=== PATIENT | female | born 1960 | race Caucasian/White ===

== ENCOUNTER 2018-05-04 09:26 | Outpatient (REF) | payer BC, SELFPAY ==
[2018-05-04 13:25] LABS: FREE T4 0.92 ng/dL (0.76-1.46); TSH 3.79 uIU/mL (0.358-3.74)
[2018-05-04 22:00] LABS: T3,Free 3.7 pg/ml (2.8-5.3)
[2018-05-05 11:21] LABS: Hepatitis C Ab w Rflx HCV PCR Negative (NEGAT)
== END 2018-05-04 09:46 ==
LOC: NCHCN 09:26
PROVIDERS: PCP Internal Medicine; Visit Provider Internal Medicine
DX: R63.5 Abnormal weight gain (principal); E03.9 Hypothyroidism, unspecified; Z11.59 Encounter for screening for other viral diseases; Z00.00 Encounter for general adult medical examination without abnormal findings
CPT/HCPCS: 82533; 86803; 84439; 84443; 84481

== ENCOUNTER 2018-07-13 00:49 | Outpatient (CLI) | payer BC, SELFPAY ==
--- NOTE | 2018-07-13 11:15 | DI.MAMMO_ITS ---
SYMPTOMS/DIAGNOSIS: SCREENING, Z12.31 MAMMOGRAM: Mammograms were interpreted according to the usual protocol including computer analysis with CAD system, tomosynthesis and C view imaging. Comparison with prior examinations. Breast density B. No suspicious masses or microcalcifications are seen. There has been no significant change compared to the prior examination. The retroareolar nodule in the left breast is stable. IMPRESSION: No evidence for malignancy. Yearly mammography is recommended. Category 2. MQSA ASSESSMENT OF FINDINGS: Negative with benign findings. Category 2. Patient will receive a letter notifying them of these results. BI-RADS category B. There are scattered areas of fibroglandular density.
== END 2018-07-13 01:09 ==
PROVIDERS: PCP Internal Medicine; Visit Provider Internal Medicine
DX: Z12.31 Encounter for screening mammogram for malignant neoplasm of breast (principal)
CPT/HCPCS: 77063; 77067

== ENCOUNTER 2018-09-11 07:15 | Outpatient (CLI) | payer BC, SELFPAY ==
[2018-09-11 08:41] LABS: FREE T4 0.95 ng/dL (0.76-1.46); TSH 8.11 uIU/mL (0.358-3.74)
[2018-09-12 15:37] LABS: Adrenocorticotropic Hormone, P 40 pg/mL
== END 2018-09-11 07:35 ==
PROVIDERS: PCP Internal Medicine
DX: D35.2 Benign neoplasm of pituitary gland (principal)
CPT/HCPCS: 36415; 82533; 82024; 84439; 84443

== ENCOUNTER 2018-10-20 13:06 | Outpatient (CLI) | payer BC, SELFPAY ==
[2018-10-20 15:14] LABS: T4 10.9 ug/dL (4.5-12.5); TSH 1.72 uIU/mL (0.358-3.74)
[2018-10-20 21:08] LABS: T3, Total 134 ng/dl (97-169)
== END 2018-10-20 13:26 ==
LOC: LBN 13:11 → LBO 13:34
PROVIDERS: PCP Internal Medicine; Visit Provider Internal Medicine Endocrinology, Diabetes & Metabolism
DX: E03.9 Hypothyroidism, unspecified (principal)
CPT/HCPCS: 36415; 84436; 84443; 84480

== ENCOUNTER 2019-02-05 10:33 | Outpatient (CLI) | payer BC, SELFPAY ==
[2019-02-05 17:14] LABS: TSH 1.11 uIU/mL (0.36-3.74)
[2019-02-07 18:33] LABS: T3, Total 119 ng/dl (97-169)
== END 2019-02-05 10:53 ==
PROVIDERS: PCP Internal Medicine; Visit Provider Internal Medicine Endocrinology, Diabetes & Metabolism
DX: E03.9 Hypothyroidism, unspecified (principal)
CPT/HCPCS: 36415; 84436; 84443; 84480

== ENCOUNTER 2019-03-15 08:45 | Outpatient (REF) | payer BC, SELFPAY ==
[2019-03-15 12:52] LABS: TSH 0.48 uIU/mL (0.36-3.74)
[2019-03-15 21:37] LABS: T3,Free 4.1 pg/ml (2.8-5.3)
== END 2019-03-15 09:05 ==
LOC: NCHCN 08:45
PROVIDERS: PCP Internal Medicine; Visit Provider Internal Medicine
DX: R63.5 Abnormal weight gain (principal); E03.9 Hypothyroidism, unspecified
CPT/HCPCS: 82533; 84439; 84443; 84481

== ENCOUNTER 2019-03-19 16:20 | Outpatient (REF) | payer BC, SELFPAY ==
--- NOTE | 2019-03-19 14:00 | PAPFT_PTH ---
PATIENT: Edgar Patel LOC: [facility] U#:[id number] AGE/SX: 58/F ROOM: RE03/19/[address]: Lindsey Delgado : 1960 BED: DIS: 03/19/2019 SPEC #: [id number] RECD: 03/22/19 13:02 STATUS: JUANCHO REFrancisco #: [id number] EFRAÍN: 03/19/19 14:[address]: Lindsey Delgado DEPT: [facility] Cytology RECD BY: Elena Joel ENTERED: 03/22/19 13:02 SP TYPE: PAPFT OTHR DR: Clive Humpherys Tissues: 1 - CX/ENDOCX FOR PAP SMEARS Procedures: PAP THIN PREP/[facility] Screening HPV DNA PROBE Comments: [id number] (CHLAMYDIA/GC)
[2019-03-23 12:44] LABS: Chlamydia Result Negative; GC Result Negative; Specimen Description SEE COMMENTS
== END 2019-03-19 16:40 ==
LOC: NCHCN 16:20
PROVIDERS: PCP Internal Medicine; Visit Provider Nurse Practitioner Family
DX: R39.11 Hesitancy of micturition (principal); Z11.3 Encounter for screening for infections with a predominantly sexual mode of transmission; Z12.4 Encounter for screening for malignant neoplasm of cervix; Z11.51 Encounter for screening for human papillomavirus (HPV)
CPT/HCPCS: 87491; 87591; 88142; 87086; 87480; 87510; 87624; 87660

== ENCOUNTER 2019-03-22 00:42 | Outpatient (CLI) | payer BC, SELFPAY ==
--- NOTE | 2019-03-22 12:50 | DI.US_ITS ---
SYMPTOMS/DIAGNOSIS: MASS LEFT ANTECUBITAL REGION, R22.9-LOCALIZED SWELLING, MASS AND LUMP, UNSPECIFIED ULTRASOUND OF THE SOFT TISSUES IN THE LEFT ANTECUBITAL SPACE: There is no evidence of a localized mass or fluid collection. The patient reports multiple IVs were positioned in this site for previous MRIs. SUMMARY: No discrete mass or fluid collection is apparent.
== END 2019-03-22 01:02 ==
PROVIDERS: PCP Internal Medicine; Visit Provider Surgery
DX: R22.32 Localized swelling, mass and lump, left upper limb (principal); M79.89 Other specified soft tissue disorders
CPT/HCPCS: 76881

== ENCOUNTER 2019-03-29 00:29 | Outpatient (CLI) | payer BC, SELFPAY ==
--- NOTE | 2019-03-29 13:12 | DI.CT_ITS ---
EXAM: CT UPPER EXTREMITY LT W CLINICAL HISTORY: Mass just distal to left antecubital fossa, R22.9. TECHNIQUE: The examination was carried out with intravenous administration of 100 cc of Omnipaque 35 0. COMPARISON: No exams were available for comparison FINDINGS: There is no evidence of a soft tissue mass. No bony abnormality is identified. IMPRESSION: No abnormality is evident. If there is strong further clinical question, then further assessment with an MRI is suggested.
[2019-03-29 14:43] LABS: CREATININE 0.84 mg/dL (0.55-1.02)
[2019-03-29] MEDS: Omnipaque 350 MG/ML 100 ML BTL IJ (15:21)
== END 2019-03-29 00:49 ==
PROVIDERS: PCP Internal Medicine; Visit Provider Surgery
DX: R22.32 Localized swelling, mass and lump, left upper limb (principal)
CPT/HCPCS: 36415; 73201; 82565; J3490

== ENCOUNTER 2019-04-28 10:29 | Emergency (ER) | payer BC, SELFPAY ==
[2019-04-28 10:33] VITALS: BP 102/47; PULSE 78; RESP 18; TEMP 36.5; O2SAT 95
--- NOTE | 2019-04-28 10:40 | ED.GENADUL_ITS ---
Discharge Plan Discharge Details Chief Complaint: Abd Prob Primary Care Provider: Clive Humphreys ED Provider: Rui Sommer Home Meds and New Rx's Prescriptions: No Action Bevespi Aerosphere 9-4.8 mcg HFA aerosol inhaler 2 puff IH BID RF: 0 levothyroxine [Synthroid] 100 mcg tablet 100 mcg PO DAILY RF: 0 pyridoxine (vitamin B6) [Vitamin B-6] 100 MG tablet 100 mg PO DAILY RF: 0 albuterol sulfate [Ventolin HFA] 60 PUFF HFA aerosol inhaler 2 puff Inhalation .QID PRN RF: 0 multivitamin 1 EACH capsule 1 ea PO DAILY RF: 0 Medical Decision Making 58-year-old female presents from home complaining of approximately 6 months of intermittent episodes of bandlike epigastric abdomen and chest discomfort. Sometimes associated with unwillingness to eat. She has not had vomiting, no fever, no change to bowel or bladder habits. She states sometimes it comes on when walking in her field for up to 3 miles. It does seem to improve with rest. Denies syncope. She states she was unable to be seen by her regular doctor's office and therefore sought evaluation today due to recurrent bandlike pain while walking this morning. She arrives with a temp of 36.5, pulse 78, blood pressure 102/47. Her examination is unremarkable. Differential diagnosis within include acute coronary syndrome with stable angina, must exclude PE, would consider dehydration, electrolyte abnormality,, abdominal claudication, thyroid abnormality Lab Data Lab results reviewed: Yes I reviewed the patient's lab results. Labs: Laboratory Results - last 24 hr 04/28/19 04/28/19 04/28/19 10:55 10:55 11:06 WBC 4.60 RBC 4.61 Hgb 14.2 Hct 42.2 MCV 91.5 MCH 30.8 MCHC 33.6 RDW 12.9 Plt Count 245 MPV 10.3 Immature Gran % 0.4 Neutrophils % 55.5 Lymphocytes % 30.4 Monocytes % 10.9 Eosinophils % 2.4 Basophils % 0.4 Absolute Neutrophils 2.55 Absolute Lymphocytes 1.40 Absolute Monocytes 0.50 Absolute Eosinophils 0.11 Absolute Basophils 0.02 Sodium 143 Potassium 3.9 Chloride 106 Carbon Dioxide 26.5 Anion Gap 10.5 BUN 7 Creatinine 0.86 Estimated GFR/1.73 m2 >= 60.00 Glucose 101 H Calcium 9.2 Magnesium 1.8 Total Bilirubin 0.5 AST 28 ALT 33 Alkaline Phosphatase 118 H Troponin I < 0.05 NT-Pro-B Natriuret Pep 139 Total Protein 6.8 Albumin 3.8 Lipase 112 Urine Color Yellow Urine Clarity Clear Urine pH 8.5 H Ur Specific [place] 1.015 Urine Protein Trace H Urine Ketones Negative Urine Blood Negative Urine Nitrite Negative Urine Bilirubin Negative Urine Urobilinogen 0.2 Ur Leukocyte Esterase Negative Urine Glucose Negative ECG Data Attestation: I personally reviewed and interpreted this ECG (s) as follows: Interpretation: Normal sinus rhythm, rate of 77, QRS is narrow, VA interval 112, no delta wave appreciated. No ST segment elevation present. HPI General Mode of arrival: ambulatory . Date/Time Provider Initiated Documentation: 04/28/19 10:36 . Limitations to Documentation: no limitations . Information obtained by: patient . History of Present Illness 58 year old F presents to the emergency department with the chief complaint of Multiple complaints over 6 months time, described as moderate, Quality is described as dull, and is localized to the chest and abdomen. Patient reports radiation to back and abdomen. Patient started experiencing this month(s) and it has been intermittent. Rest improves symptom(s), Other factors that worsen symptoms (Seems to worsen with exercise) . Patient notes loss of appetite; denies syncope. Patient did receive the following treatments prior to arrival, none Related Data Home Medications Medication Instructions Recorded Confirmed albuterol sulfate [Ventolin HFA] 2 puff INHALATION .QID PRN 01/18/14 04/28/19 multivitamin 1 ea PO DAILY 01/18/14 04/28/19 pyridoxine (vitamin B6) [Vitamin 100 mg PO DAILY 01/18/14 04/28/19 B-6] levothyroxine 100 mcg tablet 100 mcg PO DAILY 03/05/19 04/28/19 glycopyrrolate 9 mcg-formoterol 2 puff IH BID 03/15/19 04/28/19 4.8 mcg HFA aerosol inhaler Allergies Allergy/AdvReac Type Severity Reaction Status Date / Time Penicillins Allergy Mild Verified 04/28/19 10:38 steroids Allergy Intermediate Uncoded 04/28/19 10:38 General Stated Complaint: SOB CAROLIN: 3 Review of Systems Review of Systems Narrative: Intermittent headaches since having meningioma removed. No new fall or trauma. Denies bowel or bladder changes. 8 systems reviewed and otherwise negative [facility] Medical History Adrenal insufficiency (Acute) steroid inhaler Anxiety and depression (Acute) Asthma (Chronic) intermittent, mild Benign meningioma of brain (Acute) Cardiomyopathy (Acute) COPD (chronic obstructive pulmonary disease) (Chronic) Environmental allergies (Acute) Exertional shortness of breath (Acute) Fatigue (Acute) Headache (Acute) Hypothyroidism (Chronic) Pain in right thigh (Acute) Physical deconditioning (Acute) Soft tissue mass (Acute) 03/01/19 left forearm Vision changes (Acute) Social History Smoking/Tobacco Use Status: Former Tobacco Use Drug use: Never Do you feel safe in your relationship?: Yes Exam Narrative Exam Narrative: GEN: awake, alert, oriented 3. Pleasant, well groomed, interactive. HEAD: Normocephalic, atraumatic ENT: Mucous membranes moist, oropharynx unremarkable, External ear exam unremarkable EYES: PERRL, EOMI NECK: Full ROM, no NATO, no menigismus CHEST/RESP: Nontender, clear to auscultation bilateral, no wheeze/rhonchi/rales CARDIOVASCULAR: RRR, no murmur, rub daniela. 2+ Rad pulse bilateral ABDOMEN: Soft, nontender, no mass. +Bowel sounds EXT: Full ROM, no edema, no rash Neuro: Grossly normal neurologic exam, conversant, interactive. Psych: Speech fluent, thoughts congruent, affect normal Course Vital Signs Vital signs: Vital Signs Temperature 36.5 C 04/28/19 10:33 Pulse 78 04/28/19 10:33 Respiratory Rate 18 04/28/19 10:33 Blood Pressure 102/47 L 04/28/19 10:33 Pulse Oximetry 94 L 04/28/19 10:33 Temperature 36.5 C 04/28/19 10:33 Temperature Source Skin 04/28/19 10:33 Pulse 78 04/28/19 10:33 Respiratory Rate 18 04/28/19 10:33 Respiratory Effort 04/28/19 10:33 Blood Pressure 102/47 L 04/28/19 10:33 Blood Pressure Position Supine 04/28/19 10:33 Pulse Oximetry 94 L 04/28/19 10:33 Pain Level 8 04/28/19 10:33
[2019-04-28 11:24] LABS: Abs Immature Grans 0.02 k/cumm (0.0-0.09); Absolute Basophil Count 0.02 k/cumm (0.0-0.2); Absolute Eosinophil Count 0.11 k/cumm (0.0-0.7); Absolute Neutrophil Count 2.55 k/cumm (1.2-6.7); Basophils % 0.4; Eosinophils % 2.4; HCT 42.2 % (36.0-46.0); HGB 14.2 g/dL (12.0-15.5); Immature Grans % 0.4; Lymphocytes % 30.4; Mean Corp. HGB Concentration 33.6 g/dL (32.0-36.0); Mean Corpuscular Hemoglobin 30.8 pg (27.0-33.0); Mean Corpuscular Volume 91.5 fL (80-95); Mean Platelet Volume 10.3 fL (8.0-11.0); Monocytes % 10.9; Neutrophils % 55.5; Platelet Count 245 x1000/uL (130-400); RBC 4.61 m/cumm (4.00-5.20); RBC Distribution Width 12.9 % (11.7-14.6)
[2019-04-28 11:35] LABS: ALT 33 U/L (14-59); AST 28 U/L (15-37); Albumin 3.8 g/dL (3.4-5.0); Alkaline Phosphatase 118 U/L (46-116); Anion Gap 10.5 mmol/L (3-11); BUN 7 mg/dL (7-18); Bilirubin, Total 0.5 mg/dL (0.2-1.0); CO2 26.5 mmol/L (21.0-32.0); CREATININE 0.86 mg/dL (0.55-1.02); Calcium 9.2 mg/dL (8.5-10.1); Chloride 106 mmol/L (98-107); Glucose 101 mg/dL (70-100); Lipase 112 U/L (73-393); Magnesium 1.8 mg/dL (1.8-2.4); NT-proBNP 139 pg/mL; Potassium 3.9 mmol/L (3.5-5.1); Sodium 143 mmol/L (136-145); Total Protein 6.8 g/dL (6.4-8.2)
[2019-04-28 11:40] LABS: Troponin I < 0.05 ng/mL (0.00-0.06)
--- NOTE | 2019-04-28 11:46 | DI.CT_ITS ---
EXAM: CT CHEST/ABD/PEL W CLINICAL HISTORY: bandlike epigastric pain. TECHNIQUE: The CT examination chest, abdomen and pelvis was carried out with intravenous injection o f 100 cc of Omnipaque 350. COMPARISON: No exams were available for comparison FINDINGS: Chest CT: There are emphysematous changes in the lungs. No infiltrate, mass or pleural effusion is seen. The heart is not enlarged. There is no evidence of an aortic aneurysm or aortic dissection. No pulmonar y emboli are identified. No acute bony abnormality is seen. There is no evidence of lymphadenopathy . Small regions of calcification in the right paratracheal space would be consistent with calcified lymph nodes. CT examination of the abdomen and pelvis: The liver and gallbladder are unremarkable. The kidneys are normal. There is no evidence of hydronep hrosis. The adrenals are normal. There is no evidence of bowel obstruction. There is nothing to bond ggest an acute appendix. No localized bowel wall abnormality is apparent. The reproductive organs a s visualized appear intact. The bladder is unremarkable. There is no evidence of free air or free f luid in the intraperitoneal space. Small fat containing inguinal hernias are identified. There is a lso a tiny fat containing umbilical hernia. There is no evidence of an aortic aneurysm. Degenerativ e bony changes associated with a narrowed vacuum disc at L5-S1 are identified. No acute bony abnorma lity is seen. IMPRESSION: There is no evidence of an acute abnormality in the chest, abdomen or pelvis.
[2019-04-28 11:55] LABS: D-Dimer 350 ng/mlFEU (<500)
[2019-04-28] MEDS: Normal Saline 500 ML IV (12:00)
[2019-04-28] MEDS: Omnipaque 350 MG/ML 100 ML BTL IV (12:35)
[2019-04-28 12:47] LABS: Bilirubin Negative (Negative); Blood Negative (Negative); Clarity Clear (Clear); Glucose Negative (Negative); Ketones Negative (Negative); Leukocyte Esterase Negative (Negative); Nitrite Negative (Negative); Specific Gravity 1.015 (1.005-1.025); Urobilinogen 0.2 EU/dL (Up TO 0.2); pH 7.5 (5-8)
[2019-04-28 12:53] LABS: TSH 1.21 uIU/mL (0.36-3.74)
[2019-04-28 14:28] LABS: Troponin I < 0.05 ng/mL (0.00-0.06)
[2019-04-28 15:14] VITALS: BP 100/63; PULSE 90; RESP 18; O2SAT 94
== END 2019-04-28 15:15 | disposition home or self-care (01) ==
PROVIDERS: Emergency Provider Emergency Medicine; PCP Internal Medicine
DX: R10.13 Epigastric pain (principal); R07.9 Chest pain, unspecified; J44.9 Chronic obstructive pulmonary disease, unspecified; Z87.891 Personal history of nicotine dependence
CPT/HCPCS: 36415; 74177; 80053; 83690; 93005; 99285; 71260; 81003; 81015; 83735; 83880; 84443; 84484; 85025; 85379; 93010; 99284; J3490

== ENCOUNTER 2019-08-27 10:39 | Outpatient (REF) | payer BC, SELFPAY ==
[2019-08-27 12:21] LABS: HCT 44.8 % (36.0-46.0); Mean Corp. HGB Concentration 33.5 g/dL (32.0-36.0); Mean Corpuscular Hemoglobin 30.3 pg (27.0-33.0); Mean Corpuscular Volume 90.5 fL (80-95); Mean Platelet Volume 10.6 fL (8.0-11.0); Platelet Count 272 x1000/uL (130-400); RBC 4.95 m/cumm (4.00-5.20); RBC Distribution Width 12.9 % (11.7-14.6); White Blood Cell Count 5.19 k/cumm (4.4-10.8)
[2019-08-27 12:37] LABS: Anion Gap 10.2 mmol/L (3-11); BUN 8 mg/dL (7-18); CO2 26.8 mmol/L (21.0-32.0); CREATININE 0.82 mg/dL (0.55-1.02); Calcium 9.1 mg/dL (8.5-10.1); Chloride 106 mmol/L (98-107); Creatine Kinase 144 U/L (26-192); FREE T4 1.44 ng/dL (0.76-1.46); Glucose 99 mg/dL (74-106); NT-proBNP 151 pg/mL (<300); Potassium 4.5 mmol/L (3.5-5.1); Sodium 143 mmol/L (136-145); TSH 0.22 uIU/mL (0.36-3.74)
[2019-08-27 17:13] LABS: T3,Free 4.3 pg/mL (2.8-5.3)
[2019-08-30 08:35] LABS: Vitamin D 25 Total 24.9 ng/ml (30-100)
== END 2019-08-27 10:59 ==
LOC: NCHCN 10:39
PROVIDERS: PCP Internal Medicine; Visit Provider Internal Medicine
DX: R06.09 Other forms of dyspnea (principal); J44.9 Chronic obstructive pulmonary disease, unspecified; R30.0 Dysuria; E03.9 Hypothyroidism, unspecified; Z86.79 Personal history of other diseases of the circulatory system
CPT/HCPCS: 80048; 82306; 82550; 85027; 83880; 84439; 84443; 84481

== ENCOUNTER 2019-08-30 02:08 | Outpatient (CLI) | payer BC, SELFPAY ==
--- NOTE | 2019-08-30 | PFT_ITS ---
PULMONARY FUNCTION TEST REPORT Patient - Edgar Patel DATE OF SERVICE August 30, 2019 REQUESTING PROVIDER Clive Humphreys M.D. INTERPRETATION OF STUDY Spirometry shows severe obstructive airways disease with no significant bronchodilator response. Respiratory neuromuscular function testing shows slightly low MVV, but normal MIP and MEP. LUNG VOLUMES - Lung volumes show no evidence of restriction. There is mild to moderate hyperinflation and air trapping. DIFFUSION CAPACITY- Moderately reduced even when corrected to alveolar volume. AIRWAY RESISTANCE Elevated. IMPRESSION Severe obstructive airways disease with no significant bronchodilator response. There is slightly low MVV, but otherwise respiratory neuromuscular function testing is normal. There is mild to moderate hyperinflation and air trapping and moderate diffusion defect. When this study was compared to previous one from 11/21/14 and 12/27/16, the patient has an initial improvement in FVC and has been totally stable since 2017. FEV1 has remained stable from 2015. Tosin Cobb M.D. Shay T- 09/03/19
[2019-08-30] MEDS: Inhaler, Assist Device 1 EACH MC (17:17)
[2019-08-30] MEDS: Albuterol HFA 18 GM 200 PUFF INH IH (17:17)
== END 2019-08-30 02:28 ==
PROVIDERS: PCP Internal Medicine; Visit Provider Internal Medicine
DX: J44.9 Chronic obstructive pulmonary disease, unspecified (principal); R06.09 Other forms of dyspnea; E03.9 Hypothyroidism, unspecified
CPT/HCPCS: 94060; 94726; 94729

== ENCOUNTER 2019-09-08 13:11 | Emergency (ER) | payer BC, SELFPAY ==
[2019-09-08 13:16] VITALS: BP 113/69; PULSE 90; RESP 16; TEMP 36.5; O2SAT 93
[2019-09-08 14:07] LABS: Abs Immature Grans 0.01 k/cumm (0.0-0.09); Absolute Basophil Count 0.01 k/cumm (0.0-0.2); Absolute Eosinophil Count 0.26 k/cumm (0.0-0.7); Absolute Lymphocyte Count 1.83 k/cumm (1.2-3.4); Absolute Monocyte Count 0.58 k/cumm (0.11-0.7); Absolute Neutrophil Count 2.99 k/cumm (1.2-6.7); Basophils % 0.2; Eosinophils % 4.6; HCT 44.2 % (36.0-46.0); HGB 15.2 g/dL (12.0-15.5); Immature Grans % 0.2 %; Lymphocytes % 32.2; Mean Corp. HGB Concentration 34.4 g/dL (32.0-36.0); Mean Corpuscular Hemoglobin 30.5 pg (27.0-33.0); Mean Corpuscular Volume 88.6 fL (80-95); Mean Platelet Volume 10.4 fL (8.0-11.0); Monocytes % 10.2; Neutrophils % 52.6; Platelet Count 269 x1000/uL (130-400); RBC 4.99 m/cumm (4.00-5.20); RBC Distribution Width 12.8 % (11.7-14.6); White Blood Cell Count 5.68 k/cumm (4.4-10.8)
[2019-09-08 14:09] VITALS: O2SAT 90
[2019-09-08 14:10] VITALS: O2SAT 93
[2019-09-08 14:22] LABS: ALT 36 U/L (14-59); AST 27 U/L (15-37); Alkaline Phosphatase 127 U/L (46-116); Anion Gap 9.9 mmol/L (3-11); BUN 8 mg/dL (7-18); Bilirubin, Total 0.3 mg/dL (0.2-1.0); CO2 26.1 mmol/L (21.0-32.0); CREATININE 0.76 mg/dL (0.55-1.02); Chloride 105 mmol/L (98-107); Glucose 101 mg/dL (74-106); Sodium 141 mmol/L (136-145)
[2019-09-08 14:35] LABS: NT-proBNP 131 pg/mL (<300); Troponin I < 0.05 ng/Ml (<0.06)
--- NOTE | 2019-09-08 14:39 | NUR.NOTE ---
nebulizers given as orderd by RT . unable to document in the MAR due to a code blackNursing Note:
--- NOTE | 2019-09-08 15:15 | DI.RAD_ITS ---
EXAM: XR CHEST 2V PA LATERAL CLINICAL HISTORY: SOB, r/o pneumonia TECHNIQUE: 2D digital imaging was performed. COMPARISON: CHEST 2 VIEWS PA,LAT from 02/25/2017 FINDINGS: MEDIASTINUM: Normal. HEART: Normal. PULMONARY VASCULATURE: Normal. LUNGS: Clear. The lungs are hyperinflated suggesting underlying COPD. PLEURAL SPACE: No pleural effusion or pneumothorax. BONE:Within normal limits. OTHER FINDINGS:Normal. IMPRESSION: No acute pulmonary findings. DATA REPOSITORY: RADIATION DOSE DELIVERED:
--- NOTE | 2019-09-08 16:21 | W.ED.GENAD ---
Discharge Plan Disposition Patient Disposition: HOME Condition: Improving Discharge Details Chief Complaint: SOB Clinical Impression: COPD exacerbation Primary Care Provider: Clive Humphreys ED Provider: Parisa Limon Home Meds and New Rx's Prescriptions: New Advair HFA 230-21 mcg/actuation HFA aerosol inhaler 1 puff IH BID Qty: 8 RF: 0 No Action levothyroxine [Synthroid] 100 mcg tablet 100 mcg PO DAILY RF: 0 pyridoxine (vitamin B6) [Vitamin B-6] 100 MG tablet 100 mg PO DAILY RF: 0 albuterol sulfate [Ventolin HFA] 60 PUFF HFA aerosol inhaler 2 puff Inhalation .QID PRN RF: 0 multivitamin 1 EACH capsule 1 ea PO DAILY RF: 0 Anoro Ellipta 62.5-25 mcg/actuation Blister With Device 62.5 INHALATION RF: 0 Discharge Instructions Instructions: COPD (Chronic Obstructive Pulmonary Disease) (ED) Additional Instructions: Please follow-up promptly with primary care doctor, please call tomorrow to schedule appointment in the next 48 hours for reassessment. Please restart Advair as discussed. Pursue pulmonary rehab as discussed. You will be contacted regarding prompt appointment with clinical assistant professor Encourage Rest, slow return to activities as tolerated. Referral for endocrinology has been sent, you should hear in the next 2 days. Return immediately for increasing difficulty breathing, increase in shortness of breath, chest pain or alarming symptoms if needed sooner Referrals: Clive Humphreys MD [Primary Care Provider] - Discharge Data Discharge Date/Time-TO BE ENTERED AT DEPARTURE: 09/08/19 19:03 Medical Decision Making <SANA Lagos - Last Filed: 09/09/19 17:51> Is a 59-year-old very pleasant patient with severe COPD based on previous pulmonary function testing presenting to the emergency room for shortness of breath which has been insidious in onset. She does report mild flushing and chills over the last week and is concerned with the possibility of a pulmonary infection. Patient reports several years of shortness of breath. Patient reports somewhat worse in the last few days. Patient reports exertional dyspnea. Patient reports she is quite anxious regarding her dyspnea which she has been experiencing. Patient denies any active chest or back pain. Patient reports compliance with her inhalers which were transiently helpful. Patient reports she has been quite sedentary over this year and has been unable to participate in the majority of the outdoor activities she enjoys due to her shortness of breath. Patient reports she was previously on steroid inhalers but those inhalers were discontinued due to adrenal insufficiency which was attributed to chronic inhaler use. Patient reports when she was on inhalers her breathing was significantly better than she is noted it to be over the last few years. Patient does have a complicated medical history specifically she had adrenal abnormalities and ultimately had imaging of her brain which noted and a hemangioma which was benign which was surgically removed 2 years ago. Patient does have a history of hypothyroidism for which she is treated with Synthroid. Patient has worked with her PCP for her shortness of breath and is due to see a clinical assistant professor scheduled in December. Patient does report recent pulmonary function testing, which did reveal severe COPD with air trapping and alveolar breakdown. On physical exam patient is anxious, vital signs reviewed mild hypoxia noted at 92%. Patient has diffuse wheezing on her breath sounds. No desaturations with ambulating Initial EKG reveals sinus rhythm with a rate of 72, no ST segment changes. This was reviewed with Dr. Roy. Labs as well as chest x-ray ordered. Respiratory therapist reviewed patient's PFTs and recommends aerogen DuoNeb's x3. Patient did report mild improvement after DuoNeb's. Labs reveal no associated leukocytosis, initial troponin is negative and CMP within normal limits with the exception of mild elevation of alk phos which has been elevated slightly compared to previous labs. Patient is aware of this. Given patient's insidious onset of symptoms, as well as diffuse wheezing on exam with lack of associated chest pain or typical cardiac symptoms I feel ACS is unlikely. Patient does report she underwent a significant cardiac evaluation a few years ago which was unremarkable for abnormalities. Patient also does not feel this is likely cardiac in etiology. Chest x-ray unremarkable for identifiable pneumonia consistent with COPD. I spoke with covering PCP Kandi Martinez, covering for Dr. Humphreys, she reviewed patient's previous charts which did reveal adrenal insufficiency reportedly secondary to inhaler use and the recommendation for discontinuation was made by Dr. Gaines. We discussed the use of reinitiating inhaled steroids given patient's limitations to her activities of daily living, persistent COPD symptoms and presentation today. Patient was previously on Advair 230 mcg 2 puffs twice daily, we discussed restarting at [address] Martinez agree with reinitiation of Advair given risks and benefits and following up promptly with Dr. Humphreys. Respiratory therapist will brass molder helper and prompt pulmonary referral for reevaluation as an outpatient to expedite patient's outpatient evaluation. Also recommended pulmonary rehab which I do feel is reasonable. On reevaluation of the patient oxygenation is maintained at 92%, however patient reports despite the 3 nebulizer treatments she again had transient improvement and does feel short of breath when exerting. Will add d-dimer to rule out pulmonary embolism a possible etiology of patient's symptoms. Patient signed out pending TSH, d-dimer and urinalysis. <SANA Forrester - Last Filed: 09/09/19 23:26> Care was transitioned myself with a TSH, d-dimer and urinalysis pending. Elsa Bishop initially saw the patient, please see her note regarding presentation, physical exam and initial work-up. In brief, patient is a 59-year-old female with history of COPD that is progressive and worsening over the past 2 years with a abrupt increase in symptoms over the past 4 days. No fevers or chills. Work-up thus far has been without significant abnormality. She has been responding to duo nebulizers and does feel slightly improved. However, patient continues to be concerned regarding her activity level is typically activity causes sudden increase and has greatly been limiting her ability to participate in day-to-day activities. She does not have any chest pain. Please see Elsa's note regarding initial labs and EKG. Patient has been seen by respiratory therapy and a referral has been sent to pulmonology. Making this more difficult, the patient also has a history of adrenal insufficiency which is believed to be associated with inhaled previous use of inhaled glucocorticoids. However, patient also reports that this time she was diagnosed with adrenal insufficiency also is having difficulty maintaining her thyroid and with a pituitary adenoma. She has not seen endocrinology in some time, is requesting a local game warden, referral will be sent. Elsa had discussed the patient's presentation and concerns with primary care and Advair was already prescribed. TSH within normal limits. D-dimer within normal limits. Urinalysis with trace leukocyte esterase. However, the patient is asymptomatic so no for treatment at the time is appropriate. Discussed these findings with the patient. Elsa is also advised potentially beginning the patient on oral corticosteroids. However, the patient report that she is been on cortisol as well as prednisone historically and has responded quite poorly to these. She is very hesitant to take oral steroids at this time. She is done so poorly with these in the past and is improving with inhaled steroids, I do feel appropriate without the oral steroids particular as the patient seems quite reliable and return with worsening symptoms. Given the initial presentation and that the patient is beginning inhaled steroids for the first time in several years, I would like her to have prompt follow-up with primary care. She does feel ready for discharge at this time. She was given strict return precautions. She does live locally and is able to return with new or worsening symptoms. Referral for endocrinology and pulmonology has been sent. I would like for her to be evaluated in the next 48 hours. All of her questions and concerns were addressed and she is in agreement with this plan. HPI <SANA Lagos - Last Filed: 09/09/19 17:51> General Date/Time Provider Initiated Documentation: 09/08/19 13:18. HPI Narrative: This is a 59-year-old patient who is quite pleasant presenting to the emergency room for escalating complaints of shortness of breath. Patient reports several years of shortness of breath worse in the last year and specifically worse in the last few days. Patient reports she is using her inhalers at home which are transiently relieving. Patient reports when ambulating dyspnea on exertion. Patient reports 3 pillow orthopnea at night, this has been her baseline for approximately 1 year. Patient reports cough present chronically. Patient does report clear sputum intermittently produce. Patient denies any active chest or back pain. Patient denies headache or dizziness at this time. Patient does report mild chills and intermittent flushing but no measured fevers, notable in the last week. Patient denies sinus pain or pressure. Denies ear pain. Denies nausea, vomiting or diarrhea. Is eating and drinking without difficulty. Patient does report mild sensation of swelling in the proximal thigh but no lower leg swelling associated. Denies any injury or trauma. Patient denies abdominal pain. Symptoms worse when exerting. Patient finds herself very sedentary due to her symptoms. Related Data Home Medications Medication Instructions Recorded Confirmed albuterol sulfate [Ventolin HFA] 2 puff INHALATION .QID PRN 01/18/14 09/08/19 multivitamin 1 ea PO DAILY 01/18/14 09/08/19 pyridoxine (vitamin B6) [Vitamin 100 mg PO DAILY 01/18/14 09/08/19 B-6] levothyroxine 100 mcg tablet 100 mcg PO DAILY 03/05/19 09/08/19 fluticasone propion-salmeterol 1 puff IH BID #8 gm 09/08/19 [Advair HFA] umeclidinium-vilanterol [Anoro 62.5 INHALATION 09/08/19 Ellipta] Previous Rx's Medication Instructions Recorded fluticasone propion-salmeterol 1 puff IH BID #8 gm 09/08/19 [Advair HFA] Allergies Allergy/AdvReac Type Severity Reaction Status Date / Time Penicillins Allergy Mild Verified 09/08/19 13:34 steroids Allergy Intermediate Uncoded 09/08/19 13:34 General Stated Complaint: SOB CAROLIN: 3 Review of Systems <SANA Lagos - Last Filed: 09/09/19 17:51> All systems reviewed & are unremarkable except as noted in HPI and below Constitutional Constitutional: Reports chills, Reports fatigue, Reports fever(s) (Subjective), Denies headache(s) and Denies malaise ENT Ears, Nose, Mouth, and Throat: Denies dizziness, Denies headache(s), Denies nasal congestion, Denies sinus pain, Denies sinus pressure and Denies sore throat Cardiovascular Cardiovascular: Denies chest pain, Denies chest pain at rest, Denies chest pain with activity, Denies radiating jaw, neck or arm pain, Denies palpitations, Reports dyspnea and Reports dyspnea on exertion Respiratory Respiratory: Reports cough, Denies hemoptysis, Denies pain on inspiration, Reports dyspnea, Reports dyspnea on exertion and Reports wheezing Gastrointestinal Gastrointestinal: Denies abdominal pain, Denies diarrhea, Denies nausea and Denies vomiting Genitourinary Genitourinary: Denies hematuria and Reports dysuria (Intermittent, she attributes to her medication: anoro) Musculoskeletal Musculoskeletal: Denies myalgias and Denies muscle weakness Neurologic Neurologic: Denies dizziness and Denies headache(s) Endocrine Endocrine: Reports fatigue and Denies palpitations Allergic/Immunologic Allergic/Immunologic: Reports wheezing PFSH <SANA Lagos - Last Filed: 09/09/19 17:51> Medical History Adrenal insufficiency (Acute) steroid inhaler Anxiety and depression (Acute) Asthma (Chronic) intermittent, mild Benign meningioma of brain (Acute) Cardiomyopathy (Acute) COPD (chronic obstructive pulmonary disease) (Chronic) Environmental allergies (Acute) Exertional shortness of breath (Acute) Fatigue (Acute) Headache (Acute) Hypothyroidism (Chronic) Pain in right thigh (Acute) Physical deconditioning (Acute) Soft tissue mass (Acute) 03/01/19 left forearm Vision changes (Acute) Social History Smoking/Tobacco Use Status: Former Tobacco Use Quit Date: 10/06/15 Alcohol Intake: never Drug use: Never Substance use type: does not use Do you feel safe at home: Yes Do you feel safe in your relationship?: Yes Exam <SANA Lagos - Last Filed: 09/09/19 17:51> Narrative Exam Narrative: CONST: Anxious. Well hydrated. Alert and alert. HENMT: Head nomocephalic, normal to inspection. Atraumatic. Hearing grossly normal. External ear canal no erythema or swelling. TM normal bilaterally. Nose normal to inspection. No rhinnorhea. Normal facial exam. Oral mucosa normal. Tounge normal. Dentition normal. Normal posterior oropharynx. Uvula midline. EYES: General normal appearance. Alignment normal. Eyelids normal. Conjunctiva normal. Sclera normal. PERRL. NECK: Normal visual inspection. FROM. No lymphadenopathy. Trachea midline. No Midline tenderness. CHEST: Normal insepection of the chest. RESP: Normal respiratory effort. Speaking full sentences. No retractions. Diffuse wheezing. Breath sound equal and present bilaterally. CARDIO: No JVD. Normal PMI. Regular Rate. Regular Rhythm. Normal peripheral pulses. GI: Normal inspection of abdomen. No distension. Soft. Nontender. Bowel sounds present in all 4 quadrants. No rebound. No gaurding. MUSCULOSKELETAL: Normal Gait. FROM of all extremities. Distal neurovascularly intact. Sensation intact distally. No lower extremity edema noted. Mild left knee effusion present. SKIN: Normal. Dry. No rashes. NEURO: Alert and awake. Speech clear. PSYCH: Normal affect. Cooperative. Course <SANA Lagos - Last Filed: 09/09/19 17:51> Vital Signs Vital signs: Vital Signs Temperature 36.5 C 09/08/19 13:16 Pulse 90 09/08/19 13:16 Respiratory Rate 16 09/08/19 13:16 Blood Pressure 113/69 09/08/19 13:16 Pulse Oximetry 93 L 09/08/19 13:16 Temperature 36.5 C 09/08/19 13:16 Temperature Source Tympanic 09/08/19 13:16 Pulse 90 09/08/19 13:16 Respiratory Rate 16 09/08/19 13:16 Respiratory Effort 09/08/19 13:31 Respiratory Depth Normal 09/08/19 13:31 Blood Pressure 113/69 09/08/19 13:16 Pulse Oximetry 93 L 09/08/19 14:10 Oxygen Delivery Method Room Air 09/08/19 14:10 Oxygen Flow Rate 0 09/08/19 14:10 Pain Level 5 09/08/19 13:16 Comment 09/08/19 13:16 Lab/Test Results Lab/Test Results: Laboratory Tests Range/Units 09/08/19 09/08/19 09/08/19 14:00 14:00 14:00 WBC (4.4-10.8) k/cumm 5.68 RBC (4.00-5.20) m/cumm 4.99 Hgb (12.0-15.5) g/dL 15.2 Hct (36.0-46.0) % 44.2 MCV (80-95) fL 88.6 MCH (27.0-33.0) pg 30.5 MCHC (32.0-36.0) g/dL 34.4 RDW (11.7-14.6) % 12.8 Plt Count (130-400) x1000/uL 269 MPV (8.0-11.0) fL 10.4 Immature Gran % % 0.2 Neutrophils % 52.6 Lymphocytes % 32.2 Monocytes % 10.2 Eosinophils % 4.6 Basophils % 0.2 Absolute Neutrophils (1.2-6.7) k/cumm 2.99 Absolute Lymphocytes (1.2-3.4) k/cumm 1.83 Absolute Monocytes (0.11-0.7) k/cumm 0.58 Absolute Eosinophils (0.0-0.7) k/cumm 0.26 Absolute Basophils (0.0-0.2) k/cumm 0.01 Sodium (136-145) mmol/L 141 Potassium (3.5-5.1) mmol/L 4.0 Chloride (98-107) mmol/L 105 Carbon Dioxide (21.0-32.0) mmol/L 26.1 Anion Gap (3-11) mmol/L 9.9 BUN (7-18) mg/dL 8 Creatinine (0.55-1.02) mg/dL 0.76 Estimated GFR/1.73 m2 (mL/min/1.73m2) >= 60.00 Glucose (74-106) mg/dL 101 Calcium (8.5-10.1) mg/dL 9.0 Total Bilirubin (0.2-1.0) mg/dL 0.3 AST (15-37) U/L 27 ALT (14-59) U/L 36 Alkaline Phosphatase (46-116) U/L 127 H Troponin I (<0.06) ng/Ml < 0.05 NT-Pro-B Natriuret Pep (<300) pg/mL 131 Total Protein (6.4-8.2) g/dL 7.0 Albumin (3.4-5.0) g/dL 4.0 Sign Out <SANA Lagos - Last Filed: 09/09/19 17:51> Sign Out Data: Sign Out Comment: Signed out pending d-dimer, TSH and free T4 as well as urinalysis with the plan of care in place to discharge with steroid inhaler and prompt follow-up with PCP as well as pulmonary resources such as clinical assistant professor and pulmonary rehab. Last updated by Talisha Joya PA at 09/08/19 16:45
[2019-09-08 16:29] LABS: Bilirubin Negative (Negative); Blood Negative (Negative); Clarity Clear (Clear); Glucose Negative (Negative); Ketones Negative (Negative); Leukocyte Esterase Trace (Negative); Nitrite Negative (Negative); Specific Gravity 1.025 (1.005-1.025); Urobilinogen 0.2 EU/dL (Up TO 0.2)
[2019-09-08 16:34] LABS: TSH (W/Ref FT4) 0.38 uIU/mL (0.36-3.74)
[2019-09-08 16:40] LABS: D-Dimer 275 ng/mlFEU (<500)
[2019-09-08 16:49] LABS: Bacteria Rare HPF (Negative); Crystals Negative HPF (Negative); Epithelial Cells Few HPF (Negative); Mucus Heavy (Negative); RBC 0-2 HPF (0-2)
[2019-09-08 16:50] LABS: C & S Indicated? No
[2019-09-08 18:14] VITALS: BP 100/59; PULSE 84; RESP 16; TEMP 37.1; O2SAT 92
--- NOTE | 2019-09-09 08:24 | NUR.NOTE ---
Copy of referral request in Care Management box.Nursing Note:
--- NOTE | 2019-09-10 09:32 | CMPROGNOTE_ITS ---
- If Service Date Differs Date of service: 09/10/19 Time of Service: 09:32 Care Management Progress Note CM coordinates referral to [facility] endocrinology after speaking with Edgar. She had requested an endocrinology appointment in [place], [place], but LUCY learned that there no longer is an bulldozer/loader/compactor/scraper in the [place], [place], area.
--- NOTE | 2019-09-10 09:32 | PDOC.ERCMPRO ---
- If Service Date Differs Date of service: 09/10/19 Time of Service: 09:32 Care Management Progress Note CM coordinates referral to [facility] endocrinology after speaking with Edgar. She had requested an endocrinology appointment in [place], [place], but LUCY learned that there no longer is an club former in the [place], [place], area.
== END 2019-09-08 19:03 | disposition home or self-care (01) ==
PROVIDERS: Physician Assistant; Emergency Provider Physician Assistant; PCP Internal Medicine
DX: J44.1 Chronic obstructive pulmonary disease with (acute) exacerbation (principal); Z87.891 Personal history of nicotine dependence
CPT/HCPCS: 36415; 80053; 93005; 94640; 99284; 71046; 81003; 81015; 83880; 84443; 84484; 85025; 85379; 93010

== ENCOUNTER 2019-09-14 01:50 | Outpatient (CLI) | payer BC, SELFPAY ==
[2019-09-15 15:12] LABS: Adrenocorticotropic Hormone, P 69 pg/mL
== END 2019-09-14 02:10 ==
PROVIDERS: PCP Internal Medicine; Visit Provider Internal Medicine
DX: Z86.39 Personal history of other endocrine, nutritional and metabolic disease (principal)
CPT/HCPCS: 36415; 82533; 82024

== ENCOUNTER 2020-02-01 01:40 | Outpatient (CLI) | payer BC, SELFPAY ==
--- NOTE | 2020-02-01 | DI.MAMMO_ITS ---
EXAM: MAMMO SCREENING CLINICAL HISTORY: SCREENING, Z12.39 TECHNIQUE: Mammograms were interpreted according to the usual protocol including computer analysis w [employer] CAD system, tomosynthesis and C-view imaging. COMPARISON: 2011 through 2018 FINDINGS: The breasts are composed of mainly fatty density , Breast Density category A. No suspicious masses or suspicious microcalcifications are seen. There is a stable circumscribed nod ule in the lateral, central breast. No skin thickening or abnormal axillary lymph nodes are seen. There has been no significant change from prior exams. IMPRESSION: BI-RADS Category 2 - Benign Findings Yearly screening mammography is recommended. Breast Density Category A, fatty density.
== END 2020-02-01 02:00 ==
PROVIDERS: PCP Internal Medicine; Visit Provider Internal Medicine
DX: Z12.31 Encounter for screening mammogram for malignant neoplasm of breast (principal); R92.2 Inconclusive mammogram
CPT/HCPCS: 77063; 77067

== ENCOUNTER 2020-02-02 03:09 | Outpatient (CLI) | payer BC, SELFPAY ==
[2020-02-02 07:23] LABS: HCT 44.9 % (36.0-46.0); HGB 14.9 g/dL (11.2-15.7); MCHC 33.2 % (32.0-36.0); MCV 93.3 fL (80-95); MPV 9.9 fL (8.0-11.0); Platelet Count 260 10^3/uL (130-400); RBC 4.81 10^6/uL (3.93-5.22); RDW 12.6 % (11.7-14.6); RDW-SD 43.4 fL; WBC 5.51 10^3/uL (4.4-10.8)
[2020-02-02 08:51] LABS: FREE T4 1.53 ng/dL (0.76-1.46); TSH 0.17 uIU/mL (0.36-3.74)
[2020-02-02 16:54] LABS: T3, Total 125 ng/dL (97-169)
[2020-02-03 04:54] LABS: Vitamin D 25 Total 27.8 ng/ml (30-100)
[2020-02-03 14:13] LABS: Alpha 1 Antitrypsin,Serum 151 mg/dL (90-200)
[2020-02-03 15:25] LABS: Adrenocorticotropic Hormone, P 26 pg/mL
== END 2020-02-02 03:29 ==
PROVIDERS: PCP Internal Medicine; Visit Provider Internal Medicine
DX: Z86.39 Personal history of other endocrine, nutritional and metabolic disease (principal); E55.9 Vitamin D deficiency, unspecified; Z00.00 Encounter for general adult medical examination without abnormal findings; R63.5 Abnormal weight gain; J44.9 Chronic obstructive pulmonary disease, unspecified; E03.9 Hypothyroidism, unspecified; N89.8 Other specified noninflammatory disorders of vagina; R22.9 Localized swelling, mass and lump, unspecified; R39.11 Hesitancy of micturition
CPT/HCPCS: 36415; 82306; 82533; 85027; 82024; 82103; 84439; 84443; 84480

== ENCOUNTER 2020-04-11 17:39 | Outpatient (REF) | payer OTHER, SELFPAY ==
[2020-04-11 21:34] LABS: FREE T4 1.65 ng/dL (0.76-1.46)
[2020-04-11 22:01] LABS: TSH 0.15 uIU/mL (0.36-3.74)
[2020-04-12 19:47] LABS: T3, Total 121 ng/dL (97-169)
[2020-04-12 19:58] LABS: Prolactin 11.3 ng/mL (See Table)
== END 2020-04-11 17:59 ==
LOC: NCHCN 17:39
PROVIDERS: PCP Internal Medicine; Visit Provider Internal Medicine
DX: E03.9 Hypothyroidism, unspecified (principal); N64.3 Galactorrhea not associated with childbirth
CPT/HCPCS: 84146; 84439; 84443; 84480

== ENCOUNTER 2021-01-19 14:45 | Outpatient (REF) | payer OTHER, SELFPAY ==
[2021-01-19 20:47] LABS: Abs Immature Grans 0.02 10^3/uL (0.0-0.06); Absolute Basophil Count 0.03 10^3/uL (0.0-0.2); Absolute Eosinophil Count 0.05 10^3/uL (0.0-0.7); Absolute Monocyte Count 0.73 10^3/uL (0.1-0.8); Absolute Neutrophil Count 4.18 10^3/uL (1.2-6.7); Basophils % 0.5; Eosinophils % 0.8; HCT 43.4 % (36.0-46.0); HGB 14.5 g/dL (11.2-15.7); Immature Grans % 0.3; Lymphocytes % 24.2; MCH 31.4 pg (27.0-33.0); MCHC 33.4 % (32.0-36.0); MCV 93.9 fL (80-95); Neutrophils % 63.2; Nucleated RBC 0 %; Platelet Count 283 10^3/uL (130-400); RBC 4.62 10^6/uL (3.93-5.22); RDW 12.3 % (11.7-14.6); RDW-SD 42.5 fL; WBC 6.61 10^3/uL (4.4-10.8)
[2021-01-19 21:08] LABS: ALT 48 U/L (14-59); AST 32 U/L (15-37); Albumin 3.9 g/dL (3.4-5.0); Alkaline Phosphatase 104 U/L (46-116); Anion Gap 10.4 mmol/L (3-11); BUN 10 mg/dL (7-18); Bilirubin, Total 0.3 mg/dL (0.2-1.0); CO2 25.6 mmol/L (21.0-32.0); CREATININE 0.9 mg/dL (0.55-1.02); Calcium 9.8 mg/dL (8.5-10.1); Chloride 105 mmol/L (98-107); Glucose 102 mg/dL (74-106); Potassium 4.5 mmol/L (3.5-5.1); Sodium 141 mmol/L (136-145); TSH 0.05 uIU/mL (0.36-3.74); Total Protein 6.7 g/dL (6.4-8.2)
== END 2021-01-19 14:46 | disposition home or self-care (01) ==
LOC: NCHCN 14:45
PROVIDERS: PCP Internal Medicine; Visit Provider Family Medicine
DX: R59.1 Generalized enlarged lymph nodes (principal); E03.9 Hypothyroidism, unspecified
CPT/HCPCS: 80053; 84443; 85025

== ENCOUNTER 2021-01-19 21:36 | Outpatient (CLI) | payer OTHER, SELFPAY ==
--- NOTE | 2021-01-19 14:25 | DI.RAD_ITS ---
Exam(s) XR CHEST 2V PA LATERAL EXAM: XR CHEST 2V PA LATERAL CLINICAL HISTORY: LYMPHADENOPATHY,R59.1 TECHNIQUE: 2D digital imaging was performed. COMPARISON: CR XR CHEST 2V PA LATERAL from 09/08/2019 FINDINGS: MEDIASTINUM: Normal. No mediastinal widening or visible hilar adenopathy. HEART: Normal. PULMONARY VASCULATURE: Normal. LUNGS: Clear. PLEURAL SPACE: No pleural effusion or pneumothorax. BONE:Unremarkable for age. Lower neck: No visible mass. IMPRESSION: No acute abnormality. No adenopathy is visible. DATA REPOSITORY: RADIATION DOSE DELIVERED:
== END 2021-01-19 21:56 ==
PROVIDERS: PCP Internal Medicine; Visit Provider Family Medicine
DX: R59.1 Generalized enlarged lymph nodes (principal)
CPT/HCPCS: 71046

== ENCOUNTER 2021-02-13 01:28 | Outpatient (CLI) | payer OTHER, SELFPAY ==
--- NOTE | 2021-02-13 | DI.MAMMO_ITS ---
Exam(s) MAMMO SCREENING EXAM: MAMMO SCREENING CLINICAL HISTORY: SCREENING,Z12.39 TECHNIQUE: Mammograms were interpreted according to the usual protocol including computer analysis w [employer] CAD system, tomosynthesis and C-view imaging. COMPARISON: 2011 through 2019 FINDINGS: The breasts are composed of mainly fatty density , Breast Density category A. No suspicious masses or suspicious microcalcifications are seen. No skin thickening or abnormal axillary lymph nodes are seen. There has been no significant change from prior exams. IMPRESSION: BI-RADS Category 1, Negative mammogram Yearly screening mammography is recommended. Breast Density - Category A, fatty density. A negative radiographic report should not delay biopsy if a dominant or clinically suspicious mass is present. Up to ten percent of cancers are not identified on mammography. A negative report may reinforce clinical impression. Adenosis and dense breasts may obscure an underlying neoplasm. False positive reports average 6 to 10%. Patient will receive a letter notifying them of these results.
== END 2021-02-13 01:48 ==
PROVIDERS: PCP Internal Medicine; Visit Provider Family Medicine
DX: Z12.31 Encounter for screening mammogram for malignant neoplasm of breast (principal)
CPT/HCPCS: 77063; 77067

== ENCOUNTER 2021-04-04 03:39 | Outpatient (CLI) | payer OTHER, SELFPAY ==
[2021-04-04 07:26] LABS: HCT 44.9 % (36.0-46.0); HGB 14.6 g/dL (11.2-15.7); MCH 30.2 pg (27.0-33.0); MCHC 32.5 % (32.0-36.0); MPV 10.4 fL (8.0-11.0); Platelet Count 244 10^3/uL (130-400); RBC 4.83 10^6/uL (3.93-5.22); RDW 12.8 % (11.7-14.6); RDW-SD 43.2 fL; WBC 5.66 10^3/uL (4.4-10.8)
[2021-04-04 08:21] LABS: FREE T4 1.47 ng/dL (0.76-1.46)
[2021-04-04 08:25] LABS: ALT 51 U/L (14-59); AST 31 U/L (15-37); Alkaline Phosphatase 91 U/L (46-116); Anion Gap 9.6 mmol/L (3-11); BUN 11 mg/dL (7-18); Bilirubin, Total 0.5 mg/dL (0.2-1.0); CO2 27.4 mmol/L (21.0-32.0); CREATININE 0.9 mg/dL (0.55-1.02); Calcium 9.6 mg/dL (8.5-10.1); Calculated LDL 118 mg/dL (<100); Chloride 105 mmol/L (98-107); Cholesterol 199 mg/dL (<200); Glucose 93 mg/dL (74-106); HDL Cholesterol 66 mg/dL (40-60); Potassium 4.2 mmol/L (3.5-5.1); Sodium 142 mmol/L (136-145); Total Protein 6.7 g/dL (6.4-8.2); Triglyceride 78 mg/dL (<150)
[2021-04-04 17:39] LABS: T3, Total 150 ng/dL (97-169)
[2021-04-05 00:48] LABS: Vitamin D 25 Total 28.6 ng/mL (30-100)
== END 2021-04-04 03:40 | disposition home or self-care (01) ==
LOC: LBO 03:39
PROVIDERS: PCP Student in an Organized Health Care Education/Training Program; Visit Provider Student in an Organized Health Care Education/Training Program
DX: Z00.00 Encounter for general adult medical examination without abnormal findings (principal); E03.9 Hypothyroidism, unspecified; E55.9 Vitamin D deficiency, unspecified; R53.83 Other fatigue; E86.0 Dehydration; E87.8 Other disorders of electrolyte and fluid balance, not elsewhere classified; R79.89 Other specified abnormal findings of blood chemistry; Z13.220 Encounter for screening for lipoid disorders
CPT/HCPCS: 36415; 80053; 80061; 82306; 85027; 84439; 84443; 84480

== ENCOUNTER 2021-06-15 00:47 | Outpatient (CLI) | payer OTHER, SELFPAY ==
[2021-06-15] MEDS: Albuterol HFA 18 GM 200 PUFF INH IH (14:28)
[2021-06-15] MEDS: Inhaler, Assist Device 1 EACH MC (14:28)
--- NOTE | 2021-06-19 12:13 | W.PFT ---
Date of service: 06/15/21 Time of Service: 13:19 Pulmonary Function Test Result Requesting Provider Shannan Indications: Dyspnea on exertion Interpretation Spirometry: There is severe airflow limitation. There is no significant bronchodilator response. Lung Volumes: There is hyperinflation and air trapping Diffusion Capacity: Diffusion is reduced. Airway Pressure: Airways resistance is elevated Impression Severe airflow limitation with airtrapping and hyperinflation. Note: When compared to 08/30/19, the FEV1 and FVC are improved. The diffusion has remained stable. Clinical Correlation therefore is recommended.
== END 2021-06-15 00:48 | disposition home or self-care (01) ==
LOC: RT 00:47
PROVIDERS: PCP Student in an Organized Health Care Education/Training Program; Visit Provider Student in an Organized Health Care Education/Training Program
DX: R06.09 Other forms of dyspnea (principal); R94.2 Abnormal results of pulmonary function studies; J44.9 Chronic obstructive pulmonary disease, unspecified; Z87.891 Personal history of nicotine dependence
CPT/HCPCS: 94060; 94618; 94726; 94729

== ENCOUNTER 2021-10-02 01:13 | Outpatient (CLI) | payer OTHER, SELFPAY ==
--- NOTE | 2021-10-02 06:45 | DI.RAD_ITS ---
Exam(s) XR THORACIC SPINE COMPLETE EXAM: XR THORACIC SPINE COMPLETE CLINICAL HISTORY: evaluate for kyphosis, hump behind shoulders, E65 localized adiposity. TECHNIQUE: 2D digital imaging was performed of the thoracic spine. Four views were obtained. AP, s parker's and lateral views were obtained. COMPARISON: No exams were available for comparison FINDINGS: BONES: There is no fracture or destructive lesion. The vertebral bodies and posterior elements are un remarkable. Small endplate osteophytes are seen throughout the thoracic spine. DISKS:Alignment is within normal limits. Mild narrowing of the disc spaces is seen in the midthoracic spine. SOFT TISSUE: Visualized lungs are clear. IMPRESSION: Mild degenerative changes in the thoracic spine. DATA REPOSITORY: RADIATION DOSE DELIVERED:
--- NOTE | 2021-10-02 06:45 | DI.US_ITS ---
Exam(s) US SOFT TISSUE HEAD OR NECK EXAM: US SOFT TISSUE HEAD OR NECK CLINICAL HISTORY: re-evaluation of node for change, lymph node enlargement, R59.9. TECHNIQUE: Ultrasound was performed using standard protocol. COMPARISON: US US SOFT TISSUE HEAD OR NECK from 03/08/2021 FINDINGS: Sonographic assessment utilizing grayscale and color Doppler imaging was performed and targeted to th e area of clinical concern. No suspicious cystic or solid masses are present. The previously seen soft tissue nodule in the left neck is not visualized on the current examination. IMPRESSION: No suspicious cystic or solid mass is seen in the left neck. DATA REPOSITORY:
== END 2021-10-02 01:33 ==
PROVIDERS: PCP Student in an Organized Health Care Education/Training Program; Visit Provider Student in an Organized Health Care Education/Training Program
DX: R22.2 Localized swelling, mass and lump, trunk; M51.34 Other intervertebral disc degeneration, thoracic region; R59.0 Localized enlarged lymph nodes; E65 Localized adiposity; Z80.7 Family history of other malignant neoplasms of lymphoid, hematopoietic and related tissues
CPT/HCPCS: 76536; 72072

== ENCOUNTER → 2021-10-03 01:50 | Outpatient (CLI) | payer OTHER, SELFPAY | PROVIDERS: PCP Student in an Organized Health Care Education/Training Program; Visit Provider Student in an Organized Health Care Education/Training Program ==

== ENCOUNTER 2022-04-30 02:30 | Outpatient (CLI) | payer OTHER, SELFPAY ==
[2022-04-30 08:54] LABS: TSH (W/Ref FT4) 0.44 uIU/mL (0.36-3.74)
[2022-05-01 10:21] LABS: Vitamin D 25 Total 30.9 ng/mL (30-100)
== END 2022-04-30 02:31 | disposition home or self-care (01) ==
LOC: LBO 02:30
PROVIDERS: PCP Student in an Organized Health Care Education/Training Program; Visit Provider Student in an Organized Health Care Education/Training Program
DX: E03.9 Hypothyroidism, unspecified (principal); R79.89 Other specified abnormal findings of blood chemistry; E55.9 Vitamin D deficiency, unspecified
CPT/HCPCS: 36415; 82306; 84443

== ENCOUNTER 2022-08-07 01:58 | Outpatient (CLI) | payer OTHER, SELFPAY ==
--- NOTE | 2022-08-07 07:30 | DI.MAMMO_ITS ---
Exam(s) MAMMO SCREENING EXAM: MAMMO SCREENING CLINICAL HISTORY: screening,z12.39 TECHNIQUE: Mammograms were interpreted according to the usual protocol including computer analysis w [employer] CAD system, tomosynthesis and C-view imaging. COMPARISON: 2014 through 2020 FINDINGS: The breasts are composed of mainly fatty density , Breast Density category A. No suspicious masses or suspicious microcalcifications are seen. No skin thickening or abnormal axillary lymph nodes are seen. There has been no significant change from prior exams. IMPRESSION: BI-RADS Category 1, Negative mammogram Yearly screening mammography is recommended. Breast Density - Category A, fatty density. A negative radiographic report should not delay biopsy if a dominant or clinically suspicious mass is present. Up to ten percent of cancers are not identified on mammography. A negative report may reinforce clinical impression. Adenosis and dense breasts may obscure an underlying neoplasm. False positive reports average 6 to 10%. Patient will receive a letter notifying them of these results.
== END 2022-08-07 02:18 ==
LOC: DI 01:58
PROVIDERS: PCP Student in an Organized Health Care Education/Training Program; Visit Provider Student in an Organized Health Care Education/Training Program
DX: Z12.31 Encounter for screening mammogram for malignant neoplasm of breast (principal)
CPT/HCPCS: 77063; 77067

== ENCOUNTER 2023-08-14 09:10 | Outpatient (CLI) | payer OTHER, SELFPAY | END 2023-08-14 09:11 | disposition home or self-care (01) | PROVIDERS: PCP Student in an Organized Health Care Education/Training Program; Visit Provider Student in an Organized Health Care Education/Training Program | DX: I48.92 Unspecified atrial flutter (principal) | CPT/HCPCS: 93246 ==

== ENCOUNTER 2023-08-29 07:14 | Emergency (ER) | payer OTHER, SELFPAY ==
[2023-08-29 07:20] VITALS: BP 151/56; PULSE 80; RESP 20; TEMP 36.6; O2SAT 94
--- NOTE | 2023-08-29 07:21 | ED.GENADUL_ITS ---
Discharge Plan Disposition Patient Disposition: Home Discharge Details Clinical Impression: Community acquired pneumonia Primary Care Provider: Shalini Herron ED Provider: Bruno Calvillo Home Meds and New Rx's Prescriptions: New doxycycline hyclate 100 mg capsule 100 mg PO BID Qty: 10 0RF Continued ibuprofen [Advil] 200 mg tablet 400 mg PO Q6H PRN pyridoxine (vitamin B6) [Vitamin B-6] 100 mg tablet 100 mg PO DAILY Qty: 90 3RF calcium carbonate-vitamin D3 [Caltrate with Vitamin D3] 600 mg-20 mcg (800 unit) tablet 1 tab PO .QOD levothyroxine [Synthroid] 25 mcg tablet See Rx Instructions PO .QOD Qty: 120 1RF Rx Instructions: Daily with 75mcg tablet + 1/4 QOD PO .QOD; Take with 25mcg and 75mcg daily AND 6.25mcg dose (1/4 of 25mcg) QOD. levothyroxine [Synthroid] 75 mcg tablet 75 mcg PO DAILY Qty: 90 1RF Rx Instructions: Take with 25mcg daily AND 6.25mcg dose (1/4 of 25mcg) QOD. ascorbate calcium (vitamin C) 500 mg tablet 500 mg PO DAILY Patient Comments: dose unknown albuterol sulfate 90 mcg/actuation HFA aerosol inhaler See Rx Instructions .ROUTE .COMPLEX Qty: 18 12RF Dose Instruction: INHALE TWO PUFFS BY MOUTH EVERY 4 HOURS NEEDED FOR SHORTNESS OF BREATH OR WHEEZING Rx Instructions: INHALE TWO PUFFS BY MOUTH EVERY 4 HOURS NEEDED FOR SHORTNESS OF BREATH OR WHEEZING fluticasone propion-salmeterol 500-50 mcg/dose blister with device See Rx Instructions .ROUTE .COMPLEX Qty: 60 12RF Dose Instruction: INHALE ONE PUFF BY MOUTH TWICE A DAY Rx Instructions: INHALE ONE PUFF BY MOUTH TWICE A DAY Anoro Ellipta 62.5-25 mcg/actuation blister with device See Rx Instructions .ROUTE .COMPLEX Qty: 60 12RF Dose Instruction: INHALE ONE PUFF BY MOUTH EVERY DAY Rx Instructions: INHALE ONE PUFF BY MOUTH EVERY DAY multivitamin 1 EACH capsule 1 ea PO DAILY Discharge Instructions Instructions: Acute Cough (ED) Additional Instructions: You were seen in the emergency department for your cough. Your x-ray showed no sign of a bacterial pneumonia. Your viral swab was negative for COVID, flu, and RSV. As we discussed you may have another virus. Please return to the emergency department if you cannot eat or drink as result of nausea or vomiting or if you become increasingly short of breath. Otherwise please follow-up with your primary care provider next week. Discharge Data Discharge Date/Time-TO BE ENTERED AT DEPARTURE: 08/29/23 09:13 HPI General Date/Time Provider Initiated Documentation: 08/29/23 07:21 . HPI Narrative: MDM This is an overall very well-appearing normothermic and not tachycardic 62-year-old female with history of reactive airway disease now with productive cough concerning for the possibility of bacterial pneumonia for which patient will undergo chest x-ray. No nausea nor vomiting to suggest benefit from assessment of electrolytes. Patient is very well-appearing so I do not feel that electrolytes would help to calculate a port score as she is clinically appropriate for outpatient management. No chest pain to suggest ACS so I did not obtain an ECG. No pain out of proportion to suggest necrotizing soft tissue infection. No history of trauma to the chest so doubt pneumothorax. I considered PE but in the absence of tachycardia chest pain and hypoxia I feel that PE is less likely. Will swab for COVID using PCR test. No vomiting to suggest increased risk for esophageal rupture. No rash to chest to suggest zoster. Good ROM in neck so I am not concerned for retropharyngeal abscess. No sore throat to suggest peritonsillar abscess. No vomiting to suggest subdural empyema. No wheezes to suggest exacerbation of reactive airway disease so we will defer steroids. 8:13 AM Negative COVID influenza and RSV. 8:45 AM Chest x-ray read by radiology as showing a new small infiltrate in the lateral aspect of the right midlung for which patient will receive doxycycline. No nausea nor vomiting so I do not feel that pt require IVF. Will treat with first dose here. Will discuss return indications. She is not hypoxic and tolerating p.o. so I feel that she warrants an empiric trial of expectant outpatient management given that she has not elderly. I met with the patient and her . She understood her return indication and was discharged w/PCP fu PRN. Chronic conditions affecting the care of the patient: Reactive airway disease History obtained from an outside historian: N/A External record review: [facility] [place] EMR Diagnostic interpretations performed by me: Per my independent interpretation chest x-ray shows: Signs of hyperinflation with flattened diagram. No obvious acute process. ]Medications: doxy Social determinants of health affecting disposition: N/A Management discussed with: N/A Treatment/interventions considered: N/A Response to therapies provided: N/A HPI This is a 62-year-old female with a history of reactive airway disease arriving to the emergency department via private vehicle in the setting of productive cough shortness of breath and generalized fatigue for the past approximately 2 weeks. Patient's has been sick with similar symptoms. He recently was initiated on antibiotic. She endorses chills fevers. She has not documented a fever but subjectively has felt febrile. She has not recently been on any antibiotics or steroids. She denies routine tobacco, ethanol, and illicits. She has some chronic low back pain. No recent history of falls. No chest pain. She has had slightly decreased appetite and felt slightly weaker at home with occasional dizziness. She does not feel dizzy now. She is nauseous but has not been vomiting. She denies abdominal pain dysuria nor frequency. Exam General: Well-appearing in no acute distress speaking in complete sentences. Head: Normocephalic, atraumatic. Eye: Extraocular eye movements intact. No conjunctival injection. No scleral icterus. Ear, nose, mouth, throat: Grossly normal inspection. Normal voice, handling secretions normally. Neck: Trachea midline. Cardiovascular: Well-perfused distal extremities. Regular rate and rhythm Respiratory: Nonlabored respiration. Clear lungs bilaterally. Gastrointestinal: Nondistended abdomen. Soft nontender. Musculoskeletal: No edema. Moving all 4 extremities spontaneously. Skin: Normal for age and race, grossly normal temperature and turgor. No acute rash. Neurologic: Alert and appropriate, no apparent acute deficits. Psychiatric: Mood and manner are appropriate. Grooming and personal hygiene are appropriate. Related Data Home Medications Medication Instructions Recorded Confirmed multivitamin 1 ea PO DAILY 01/18/14 07/10/23 ibuprofen 200 mg tablet (Advil) 400 mg PO Q6H PRN 01/28/20 07/10/23 ascorbate calcium (vitamin C) 500 500 mg PO DAILY 03/15/21 07/10/23 mg tablet pyridoxine (vitamin B6) 100 mg 100 mg PO DAILY #90 tabs 04/14/21 07/10/23 tablet (Vitamin B-6) calcium carbonate 600 mg-vitamin 1 tab PO .QOD 10/10/21 07/10/23 D3 20 mcg (800 unit) tablet (Caltrate with Vitamin D3) albuterol sulfate 90 mcg/actuation See Rx Instructions .Route 09/11/22 07/10/23 aerosol inhaler .COMPLEX #18 grams Synthroid 25 mcg tablet See Rx Instructions PO .QOD #120 04/24/23 07/10/23 (levothyroxine) tabs Synthroid 75 mcg tablet 75 mcg PO DAILY #90 tabs 04/24/23 07/10/23 (levothyroxine) fluticasone 500 mcg-salmeterol 50 See Rx Instructions .Route 08/01/23 mcg/dose blistr powdr for .COMPLEX #60 blisters inhalation umeclidinium 62.5 mcg-vilanterol See Rx Instructions .Route 08/01/23 25 mcg/actuation powdr for .COMPLEX #60 blisters inhalation (Anoro Ellipta) doxycycline hyclate 100 mg capsule 100 mg PO BID #10 caps 08/29/23 Previous Rx's Medication Instructions Recorded pyridoxine (vitamin B6) 100 mg 100 mg PO DAILY #90 tabs 04/14/21 tablet (Vitamin B-6) albuterol sulfate 90 mcg/actuation See Rx Instructions .Route 09/11/22 aerosol inhaler .COMPLEX #18 grams Synthroid 25 mcg tablet See Rx Instructions PO .QOD #120 04/24/23 (levothyroxine) tabs Synthroid 75 mcg tablet 75 mcg PO DAILY #90 tabs 04/24/23 (levothyroxine) fluticasone 500 mcg-salmeterol 50 See Rx Instructions .Route 08/01/23 mcg/dose blistr powdr for .COMPLEX #60 blisters inhalation umeclidinium 62.5 mcg-vilanterol See Rx Instructions .Route 08/01/23 25 mcg/actuation powdr for .COMPLEX #60 blisters inhalation (Anoro Ellipta) doxycycline hyclate 100 mg capsule 100 mg PO BID #10 caps 08/29/23 Allergies Allergy/AdvReac Type Severity Reaction Status Date / Time Penicillins AdvReac Mild n/v Verified 07/10/23 16:11 paxlovid Allergy Skin Rash Uncoded 07/10/23 16:11 steroids AdvReac Intermediate depression Uncoded 07/10/23 16:11 General CAROLIN: 3 Medical Decision Making Quality:SDOH Health Related Social Needs: No Data to Display PFSH All Active Problems (Updated 08/29/23 @ 08:48 by Bruno Calvillo MD) Community acquired pneumonia (Acute) Lumbosacral radiculopathy at L4 (Acute) Numbness of toes (Acute) left great toe - neuropathy vs L4 radiculopathy? Periodic heart flutter (Acute) Sense of a change in rhythm, as if paused ( Lower back pain (Acute) central lumbar pain @ L4, L5 region Personal history of nicotine dependence (Acute) quit 2017 Myalgia (Acute) Irritability (Acute) frustrated Weight gain finding (Acute) Worrisome, despite dec calorie intake, affecting ADL (dyspnea+) COPD (chronic obstructive pulmonary disease) (Chronic) Asthma/COPD per NeuroEndo note (10/2018), Tx w/ non-steroid inhaler due to poor tolerance of steroids and Hx adrenal insufficiency attributed to inhaled steroid use. ik, 07/14/22 Asthma (Chronic) intermittent, mild Pulmonary nodule (Acute) 2nd Repeat CT recommended in 3mo (@04/2022). 10/03/21: RUL, cluster (round/elongated) .. 3mo Re-check done 12/31/21 showing slight decrease in size, with new pleural based nodule RML 8/6mm. Hypothyroid (Chronic) Dx 4 yrs ago (~ 2016) ... Hump behind the shoulders (Acute) Kyphosis? Diabetes? ((Diabetes may be a prime reason for buffalo hump obesity. Osteoporosis may also be cited as a cause of buffalo hump on back of neck, which is known as Kyphoscoliosis. It leads to the weakening and thinning of the bones. This leads to an abnormal shape of the neck.)) ((Too much cortisol can cause some of the hallmark signs of [place] syndrome ? a fatty hump between your shoulders, a rounded face, and pink or purple stretch hassan on your skin. Alejandro syndrome can also result in high blood pressure, bone loss and, on occasion, type 2 diabetes.)) Dense breasts (Acute) Per sensation, weight, swelling Hx, and mammogram. ((note: not dense per mammogram, rad Dx)) Skin rash (Acute) Subacute; @ Breasts, with little improvement post derm top Rx. Stopped smoking with greater than 30 pack year history (Chronic) Quit 07/26/2015 .. Muscle weakness of lower extremity (Chronic) R < L .. assoc w/ meningioma? and extended bed rest? Weight loss, intentional (Acute) Hx slow weight gain, 2' Endocrine issues (?) .. Recent weight loss. Benign meningioma of brain (Acute) 02/04/2018 [facility]. Hx cognition and s peech abn s/p surgery .. Vitamin deficiency (Acute) Low D per 03/2021 labs; Hx B Vit def? Medical History Abnormal cortisol level Resolved? since all steroid d/c? ik, 07/2022...Hx Cortisol issues per pt report .. [ ] Med Records Adrenal insufficiency steroid inhaler (stopped with improvement & managing copd w/ non-srd inhalers per chart rvw, incl neuroendo note 10/2018).ik, 07/2022 Anxiety and depression Cardiomyopathy Environmental allergies Exertional shortness of breath Family history of Hodgkin's lymphoma Maternal grandfa, with late Dx. History of benign meningioma of brain (~2018) s/p surgery, 2018, @ [facility], Dr. Echeverria History of cervical dysplasia Hx Crysurg; NEG PAPs since then .. Lymph node enlargement US shows it to be enlarged .. (left, inner to clavicle, corresponds to an 8 mm lymph node). Menopause ~ 48 yo Pain in right thigh Positive self-administered antigen test for COVID-19 positive home test 04/08/22, sx onset 04/07/22 Soft tissue mass 03/01/19 left forearm Vision changes Surgical History H/O craniotomy Social History Smoking/Tobacco Use Status: Former Tobacco Use Quit Date: 10/06/15 Tobacco: How many years used: 20 Smoking risk assessment performed?: Yes Alcohol Intake: never Drug use: Never Substance use type: does not use Adopted: No Caregiver/Support person: No Foster care: No Do you need help understanding health information?: Rarely Sexually active: Yes Do you think of yourself as: decline to provide Current gender identity: decline to answer Do you feel safe at home: Yes Do you feel safe in your relationship?: Yes
--- NOTE | 2023-08-29 07:48 | DI.RAD_ITS ---
Exam(s) XR PORTABLE CHEST AP EXAM: XR PORTABLE CHEST AP CLINICAL HISTORY: Cough shortness of breath fever TECHNIQUE: 2D digital imaging was performed of the chest. One image was obtained. An AP view was ob tained. COMPARISON: CR XR CHEST 2V PA LATERAL from 01/19/[address] CHEST LUNG CANCER SCREEN from 07/15/2023 FINDINGS: MEDIASTINUM: Normal. HEART: Normal. PULMONARY VASCULATURE: Normal. LUNGS: There is a small infiltrate laterally in the mid right lung. There is a persistent infiltrate in the left lung base laterally. There was a similar area present on the CT scan of the chest from 07/15/2023. The lungs are hyperinflated with flattened diaphragms suggesting underlying COPD. PLEURAL SPACE: No pleural effusion or pneumothorax. BONE:Within normal limits for the patient's age. OTHER FINDINGS:Normal. IMPRESSION: 1. New small infiltrate in the lateral aspect of the right mid lung. 2. Persistent small infiltrate in the lateral aspect of the left lung base. DATA REPOSITORY: RADIATION DOSE DELIVERED:
[2023-08-29 08:07] LABS: COVID-19 PCR Negative (Negative); Influenza A PCR Negative (Negative); Influenza B PCR Negative (Negative); RSV PCR Negative (Negative)
[2023-08-29 08:10] LABS: Source Nasopharynx
[2023-08-29] MEDS: Doxycycline Hyclate 100 MG CAP PO (08:55)
[2023-08-29 09:07] VITALS: BP 141/73; PULSE 74; RESP 20; TEMP 36.5; O2SAT 94
== END 2023-08-29 09:13 | disposition home or self-care (01) ==
PROVIDERS: Emergency Provider Emergency Medicine; PCP Student in an Organized Health Care Education/Training Program
DX: J18.9 Pneumonia, unspecified organism (principal); J44.9 Chronic obstructive pulmonary disease, unspecified; Z11.52 Encounter for screening for COVID-19; Z87.891 Personal history of nicotine dependence
CPT/HCPCS: 87637; 99284; 71045

== ENCOUNTER 2023-09-04 10:50 | Outpatient (CLI) | payer OTHER, SELFPAY ==
--- NOTE | 2023-09-04 15:00 | W.CARDEVENT ---
Date of service: 09/04/23 Time of Service: 15:01 Cardiac Event Recorder Referring Provider:: Shalini Herron Indications:: Atrial flutter, arrhythmia Cardiac Event Note: This is a cardiac event monitor. Patient was monitored for 11 days 13 hours Predominant rhythm was sinus with an average heart rate of 81. Minimum was 46, maximum 140 There were rare isolated premature ventricular contractions there were very rare couplets. There were several brief runs of nonsustained ventricular tachycardia. The longest of these was 11 beats in duration. There were occasional atrial premature beats. There were self-limited atrial runs, a total of 27 in 11 days. The longest of these was 8 beats in duration There was no atrial fibrillation, no high-grade AV block, no pauses greater than 3 seconds Patient's symptoms were reported which generally correlated to sinus rhythm rate 80-100. Symptoms did not correspond to a dysrhythmia
== END 2023-09-04 10:51 | disposition home or self-care (01) ==
LOC: CARDOPNVT 10:50
PROVIDERS: PCP Student in an Organized Health Care Education/Training Program; Visit Provider Internal Medicine Cardiovascular Disease
DX: I49.1 Atrial premature depolarization (principal); I47.20 Ventricular tachycardia, unspecified; I48.92 Unspecified atrial flutter; I49.8 Other specified cardiac arrhythmias

== ENCOUNTER 2023-11-19 05:02 | Outpatient (CLI) | payer OTHER, SELFPAY ==
[2023-11-19 10:28] LABS: TSH (W/Ref FT4) 0.07 uIU/mL (0.36-3.74)
[2023-11-19 10:52] LABS: FREE T4 1.37 ng/dL (0.76-1.46)
== END 2023-11-19 05:03 | disposition home or self-care (01) ==
LOC: LBO 05:02
PROVIDERS: PCP Student in an Organized Health Care Education/Training Program; Visit Provider Student in an Organized Health Care Education/Training Program
DX: E03.9 Hypothyroidism, unspecified (principal)
CPT/HCPCS: 36415; 84439; 84443

== ENCOUNTER 2024-10-11 21:28 | Outpatient (REF) | payer BC, SELFPAY ==
[2024-10-11 22:23] LABS: FREE T4 1.46 ng/dL (0.76-1.46)
== END 2024-10-11 21:29 | disposition home or self-care (01) ==
LOC: NCHCN 21:28
PROVIDERS: PCP Student in an Organized Health Care Education/Training Program; Visit Provider Family Medicine
DX: E03.9 Hypothyroidism, unspecified (principal)
CPT/HCPCS: 84439; 84443

== ENCOUNTER 2024-11-19 00:13 | Outpatient (CLI) | payer BC, SELFPAY ==
--- NOTE | 2024-11-19 | DI.RAD_ITS ---
Exam(s) XR ABDOMEN FLAT PLATE EXAM: XR ABDOMEN FLAT PLATE CLINICAL HISTORY: INGESTION OF FOREIGN SUBSTANCE,SWALLOWED METAL PIN AT DENTIST. TECHNIQUE: 2D digital imaging was performed. COMPARISON: CT CT CHEST LUNG CANCER SCREEN from 11/17/2024 FINDINGS: AP supine view the abdomen: The bowel gas pattern is nonspecific in the supine position. There are no dilated bowel loops. Stom ach is not distended. There is no radiopaque foreign body, as per request. Regional bones appear un remarkable. IMPRESSION: No radiopaque foreign body seen in the abdomen and pelvis. No obvious bowel obstruction. DATA REPOSITORY: RADIATION DOSE DELIVERED:
== END 2024-11-19 00:33 ==
LOC: DI 00:13
PROVIDERS: PCP Family Medicine; Visit Provider Family Medicine
DX: T18.9XXD Foreign body of alimentary tract, part unspecified, subsequent encounter (principal)
CPT/HCPCS: 74018

== ENCOUNTER 2024-11-22 12:11 | Outpatient (REF) | payer BC, SELFPAY ==
[2024-11-22 16:31] LABS: ALT 39 U/L (14-59); AST 34 U/L (15-37); Albumin 4.2 g/dL (3.4-5.0); Alkaline Phosphatase 101 U/L (46-116); Anion Gap 8.3 mmol/L (3-11); BUN 13 mg/dL (7-18); Bilirubin, Total 0.5 mg/dL (0.2-1.0); CO2 29.7 mmol/L (21.0-32.0); Calculated LDL 138 mg/dL (<100); Chloride 102 mmol/L (98-107); Cholesterol 232 mg/dL (<200); Estimated GFR 62.91 (mL/min/1.73m2); Glucose 83 mg/dL (74-106); HDL Cholesterol 63 mg/dL (>or=50); Potassium 4.7 mmol/L (3.5-5.1); Sodium 140 mmol/L (136-145); TSH 0.13 uIU/mL (0.36-3.74); Triglyceride 158 mg/dL (<150)
[2024-11-22 17:03] LABS: FREE T4 1.38 ng/dL (0.76-1.46)
== END 2024-11-22 12:12 | disposition home or self-care (01) ==
LOC: NCHCN 12:11
PROVIDERS: PCP Family Medicine; Visit Provider Family Medicine
DX: E03.9 Hypothyroidism, unspecified (principal); E66.3 Overweight
CPT/HCPCS: 80053; 80061; 84439; 84443

== ENCOUNTER 2025-03-08 07:36 | Outpatient (CLI) | payer BC, SELFPAY ==
--- NOTE | 2025-03-08 07:46 | DI.MAMMO_ITS ---
Exam(s) MAMMO SCREENING EXAM: MAMMO SCREENING CLINICAL HISTORY: SCREENING ,Z12.31 TECHNIQUE: Mammograms were interpreted according to the usual protocol including computer analysis with CAD system, tomosynthesis and C-view imaging. COMPARISON: 2018 through 2022 FINDINGS: The breasts are composed of scattered fibroglandular densities, Breast Density category B. No suspicious masses or suspicious microcalcifications are seen. No skin thickening or abnormal axillary lymph nodes are seen. There has been no significant change from prior exams. IMPRESSION: BI-RADS Category 1, Negative mammogram Yearly screening mammography is recommended. Breast Density - Category B - There are scattered areas of fibroglandular density. Breast density Category C or D implies that the patient has dense breast tissue. Dense breast tissue can make it harder to find cancer on a mammogram. Dense breast tissue is also associated with an increased risk of breast cancer. This information about the result of the mammogram report was provided to the patient to raise their awareness. Use this report when you speak with the patient about their risks for breast cancer, which includes their family history. At that time, you may recommend additional screening tests (Ultrasound or MRI) as these tests may add significant information. A negative radiographic report should not delay biopsy if a dominant or clinically suspicious mass is present. Up to ten percent of cancers are not identified on mammography. A negative report may reinforce clinical impression. Adenosis and dense breasts may obscure an underlying neoplasm. False positive reports average 6 to 10%. Patient will receive a letter notifying them of these results.
== END 2025-03-08 07:56 ==
LOC: DI 07:37
PROVIDERS: PCP Family Medicine; Visit Provider Family Medicine
DX: Z12.31 Encounter for screening mammogram for malignant neoplasm of breast (principal); R92.323 Mammographic fibroglandular density, bilateral breasts
CPT/HCPCS: 77063; 77067

== ENCOUNTER 2025-03-17 04:10 | Outpatient (CLI) | payer BC, SELFPAY ==
[2025-03-17 10:06] LABS: TSH 0.97 uIU/mL (0.36-3.74)
[2025-03-17 22:41] LABS: T3, Total 123 ng/dL (97-169)
== END 2025-03-17 04:11 | disposition home or self-care (01) ==
LOC: LBO 04:10
PROVIDERS: Student in an Organized Health Care Education/Training Program; PCP Family Medicine; Visit Provider Family Medicine
DX: E03.9 Hypothyroidism, unspecified (principal)
CPT/HCPCS: 36415; 84439; 84443; 84480; 84482

== ENCOUNTER 2025-03-31 16:15 | Outpatient (REF) | payer BC, SELFPAY ==
--- NOTE | 2025-03-31 08:45 | PAPFT_PTH ---
PATIENT: Edgar Patel LOC: [facility]#:[id number] AGE/SX: 64/F ROOM: RE03/31/[address]: Joanie Bolanos : 1960 BED: DIS: 03/31/2025 SPEC #: [id number] RECD: 03/31/25 17:19 STATUS: JUANCHO REFrancisco #: [id number] EFRAÍN: 03/31/25 08:[address]: Joanie Bolanos [facility] Cytology RECD BY: Elena Joel Tissues: 1 - CX/ENDOCX FOR PAP SMEARS Procedures: PAP THIN PREP/[facility] Screening HPV DNA PROBE Comments: [id number] (HPV 16 & 18/45)
== END 2025-03-31 16:16 | disposition home or self-care (01) ==
LOC: NCHCN 16:15
PROVIDERS: PCP Family Medicine; Visit Provider Family Medicine
DX: Z12.4 Encounter for screening for malignant neoplasm of cervix (principal)
CPT/HCPCS: 88142; 87624

== ENCOUNTER 2025-04-29 10:15 | Emergency (ER) | payer BC, SELFPAY ==
[2025-04-29] VITALS (20 sets, daily range): BP systolic 122–146; BP diastolic 56–72; PULSE 57–77; RESP 11–21; TEMP 36.7; O2SAT 92–98
--- NOTE | 2025-04-29 10:15 | DI.RAD_ITS ---
Exam(s) XR CHEST 2V PA LATERAL EXAM: XR CHEST 2V PA LATERAL CLINICAL HISTORY: Chest pain TECHNIQUE: 2D digital imaging was performed. Two views. COMPARISON: CT CT CHEST LUNG CANCER SCREEN from 11/17/2024 FINDINGS: HEART: Normal size. Aorta: Not dilated. PULMONARY VASCULATURE: Normal. MEDIASTINUM: Unremarkable. LUNGS: Hyperinflated but clear. PLEURAL SPACE: No pleural effusion or pneumothorax. BONE:Unremarkable for age. SOFT TISSUES: Unremarkable. IMPRESSION: No acute abnormality. DATA REPOSITORY: RADIATION DOSE DELIVERED:
--- NOTE | 2025-04-29 10:16 | RT.EKG_ITS ---
APPROVED REPORT Exam: Resting ECG Reason for Exam: chest pain Patient Location: E HR:74 bpm ECG Measurements Heart Rate 74 AXIS AZ 84 P 87 QRSd 93 QRS 76 QT 393 T 64 QTc 436 Conclusion Sinus rhythm...normal P axis, V-rate 60- 99 Consider left ventricular hypertrophy...(S V1+R V5/V6) >3.25mV No Occlusion ME
--- NOTE | 2025-04-29 10:28 | W.ED.GENAD ---
Discharge Plan Disposition Patient Disposition: Home Discharge Details Clinical Impression: Chest pain, unspecified Primary Care Provider: Joanie Bolanos ED Provider: Bruno Calvillo Home Meds and New Rx's Prescriptions: Continued ibuprofen [Advil] 200 mg tablet 400 mg PO Q6H PRN pyridoxine (vitamin B6) [Vitamin B-6] 100 mg tablet 100 mg PO DAILY Qty: 90 3RF calcium carbonate-vitamin D3 [Caltrate with Vitamin D3] 600 mg-20 mcg (800 unit) tablet 1 tab PO .QOD bisacodyl [Dulcolax (bisacodyl)] 5 mg tablet,delayed release (DR/EC) 5 mg PO ONCE Qty: 4 0RF Rx Instructions: Take per colonoscopy instructions provided by ordering providers office polyethylene glycol 3350 17 gram/dose powder 17 g PO ONCE Qty: 238 0RF Rx Instructions: Take per colonoscopy instructions provided by ordering providers office ascorbate calcium (vitamin C) 500 mg tablet 500 mg PO DAILY Patient Comments: dose unknown albuterol sulfate [Ventolin HFA] 90 mcg/actuation HFA aerosol inhaler 2 puff inhalation Q6H PRN (Reason: shortness of breath or wheezing) Qty: 18 12RF levothyroxine [Synthroid] 75 mcg tablet 75 mcg PO DAILY Qty: 90 1RF Rx Instructions: Take with 25mcg daily AND 6.25mcg dose (1/4 of 25mcg) QOD. levothyroxine [Synthroid] 25 mcg tablet See Rx Instructions PO .QOD Qty: 180 3RF Rx Instructions: Daily with 75mcg tablet umeclidinium-vilanterol [Anoro Ellipta] 62.5-25 mcg/actuation blister with device 1 inh inhalation DAILY Qty: 60 12RF albuterol sulfate 90 mcg/actuation HFA aerosol inhaler 2 inh inhalation QID PRN (Reason: shortness of breath or wheezing) Qty: 8.5 12RF Rx Instructions: generic albuterol azithromycin 250 mg tablet 250 mg PO DAILY Qty: 30 12RF fluticasone propion-salmeterol [Advair HFA] 230-21 mcg/actuation HFA aerosol inhaler 2 puff inhalation BID Qty: 12 5RF albuterol sulfate [Ventolin HFA] 90 mcg/actuation HFA aerosol inhaler 2 puff inhalation Q4H PRN (Reason: shortness of breath or wheezing) Qty: 8.5 6RF multivitamin 1 EACH capsule 1 ea PO DAILY Discharge Instructions Additional Instructions: You are seen in the emergency department for chest pain. Your blood work showed no sign of heart attack. As we discussed you have risk factors and you would likely benefit from a stress test. You declined hospitalization. If your symptoms worsen or do not improve or if you change your mind please return to the emergency department. Otherwise please touch base with your primary care provider about the possibility of a follow-up stress test. Please also touch base with your primary care provider about the possibility of a proton pump inhibitor which might improve your symptoms if they are related to reflux of stomach acid into your lower esophagus. Discharge Data Discharge Date/Time-TO BE ENTERED AT DEPARTURE: 04/29/25 13:58 HPI General Date/Time Provider Initiated Documentation: 04/29/25 10:28. HPI Narrative: MDM This is an overall quite well-appearing normothermic and not tachycardic 64-year-old female with chest pressure for to undergo troponin testing in the setting of her nonischemic ECG. No pain out of proportion to suggest necrotizing soft tissue infection. Patient has not been vomiting to suggest incarceration of her known hiatal hernia. No rash to chest to suggest zoster. No tearing quality to chest pain to suggest aortic dissections I do not feel she required a CT angiogram. I considered PE. Patient is low risk so we will send a D-dimer. No positional component to suggest pericarditis and ECG is not suggestive. No cough to suggest pneumonia and no fevers. No right upper quadrant tenderness to suggest acute cholecystitis. Given trauma several weeks ago certainly possible the patient could have musculoskeletal injury. Will obtain chest x-ray. Will reassess following labs and imaging. 12:20 PM CBC lacks anemia thrombocytopenia leukocytosis. Patient had 2 reassuring troponins. She had negative D-dimer. 4:45 PM I met with the patient multiple times. We discussed that she did have some risk factors for ACS. I completed a bedside ultrasound which is reassuring against any acute heart failure. I offered the patient hospitalization for monitoring with stress testing. She ultimately declined. I advised her that there is some risks and declining and that she could have a heart attack at home. We discussed that she should return to the emergency department if she developed recurrent chest pain nausea vomiting or any shortness of breath. She understood her return indications and was discharged with an empiric trial of expectant outpatient management. Diagnostic interpretations performed by me: Per my independent interpretation chest x-ray shows: Per my independent interpretation EKG shows: No complex normal sinus rhythm at a rate of 74. Normal axis. Intervals within normal limits. LVH based on voltage criteria in left chest wall leads. No acute injury pattern. HPI This is a female with a history of hypertension, COPD, asthma, and hiatal hernia presenting with chest tightness. She is accompanied by her . She reports a persistent sensation of chest tightness and heaviness that has been escalating over the past 1.5 weeks. The discomfort is constant and located in the center of her chest, with no specific triggers identified. It intensifies when she bends over or sits but lessens when she lies down. She also experiences mild sweating, although she attributes this to the cool temperature in her home. The heaviness radiates slightly to the left side of her back. She has a history of hypertension but is not on any medication for it. She has no known history of diabetes or hypercholesterolemia. She has a long-standing rash on her breast, which has been present for several years. She also reports a dry cough and chronic respiratory issues due to COPD and asthma. She reports no history of thromboembolic events. Approximately 2 to 3 weeks ago, she sustained a fall resulting in a suspected rib fracture, although no radiographic confirmation was obtained. She was evaluated at her primary care physician's office, where it was determined that no intervention was necessary for the presumed rib fracture. Exam General: Well-appearing in no acute distress speaking in complete sentences. Head: Normocephalic, atraumatic. Eye: Extraocular eye movements intact. No conjunctival injection. No scleral icterus. Ear, nose, mouth, throat: Grossly normal inspection. Normal voice, handling secretions normally. Neck: Trachea midline. Cardiovascular: Well-perfused distal extremities. Regular rate and rhythm. Respiratory: Nonlabored respiration. Clear lungs bilaterally. Gastrointestinal: Nondistended abdomen. Soft nontender. Musculoskeletal: No edema. Moving all 4 extremities spontaneously. Skin: Normal for age and race, grossly normal temperature and turgor. No acute rash. Neurologic: Alert and appropriate, no apparent acute deficits. Psychiatric: Mood and manner are appropriate. Grooming and personal hygiene are appropriate. Related Data Home Medications ?Medication ?Instructions ?Recorded ?Confirmed multivitamin 1 ea PO DAILY 01/18/14 04/29/25 ibuprofen 200 mg tablet (Advil) 400 mg PO Q6H PRN 01/28/20 04/29/25 ascorbate calcium (vitamin C) 500 500 mg PO DAILY 03/15/21 04/29/25 mg tablet pyridoxine (vitamin B6) 100 mg 100 mg PO DAILY #90 tabs 04/14/21 04/29/25 tablet (Vitamin B-6) calcium 600 mg (as 1 tab PO .QOD 10/10/21 04/29/25 carbonate)-vitamin D3 20 mcg (800 unit) tablet (Caltrate with Vitamin D3) Ventolin HFA 90 mcg/actuation 2 puff inhalation Q6H PRN 09/26/23 04/29/25 aerosol inhaler (albuterol sulfate) shortness of breath or wheezing #18 grams Synthroid 75 mcg tablet 75 mcg PO DAILY #90 tabs 04/28/24 04/29/25 (levothyroxine) Synthroid 25 mcg tablet See Rx Instructions PO .QOD #180 06/02/24 04/29/25 (levothyroxine) tabs albuterol sulfate 90 mcg/actuation 2 inh inhalation QID PRN shortness 08/16/24 04/29/25 aerosol inhaler of breath or wheezing #8.5 grams umeclidinium 62.5 mcg-vilanterol 1 inh inhalation DAILY #60 ea 08/16/24 04/29/25 25 mcg/actuation powdr for inhalation (Anoro Ellipta) azithromycin 250 mg tablet 250 mg PO DAILY #30 tabs 01/10/25 04/29/25 fluticasone propionate 230 2 puff inhalation BID #12 grams 01/10/25 04/29/25 mcg-salmeterol 21 mcg/actuation HFA inhaler (Advair HFA) albuterol sulfate 90 mcg/actuation 2 puff inhalation Q4H PRN 03/22/25 04/29/25 aerosol inhaler (Ventolin HFA) shortness of breath or wheezing #8.5 grams bisacodyl 5 mg tablet,delayed 5 mg PO ONCE #4 tabs 04/27/25 04/29/25 release (Dulcolax (bisacodyl)) polyethylene glycol 3350 17 17 g PO ONCE #238 grams 04/27/25 04/29/25 gram/dose oral powder Previous Rx's ?Medication ?Instructions ?Recorded pyridoxine (vitamin B6) 100 mg 100 mg PO DAILY #90 tabs 04/14/21 tablet (Vitamin B-6) Ventolin HFA 90 mcg/actuation 2 puff inhalation Q6H PRN 09/26/23 aerosol inhaler (albuterol sulfate) shortness of breath or wheezing #18 grams Synthroid 75 mcg tablet 75 mcg PO DAILY #90 tabs 04/28/24 (levothyroxine) Synthroid 25 mcg tablet See Rx Instructions PO .QOD #180 06/02/24 (levothyroxine) tabs albuterol sulfate 90 mcg/actuation 2 inh inhalation QID PRN shortness 08/16/24 aerosol inhaler of breath or wheezing #8.5 grams umeclidinium 62.5 mcg-vilanterol 1 inh inhalation DAILY #60 ea 08/16/24 25 mcg/actuation powdr for inhalation (Anoro Ellipta) azithromycin 250 mg tablet 250 mg PO DAILY #30 tabs 01/10/25 fluticasone propionate 230 2 puff inhalation BID #12 grams 01/10/25 mcg-salmeterol 21 mcg/actuation HFA inhaler (Advair HFA) albuterol sulfate 90 mcg/actuation 2 puff inhalation Q4H PRN 03/22/25 aerosol inhaler (Ventolin HFA) shortness of breath or wheezing #8.5 grams bisacodyl 5 mg tablet,delayed 5 mg PO ONCE #4 tabs 04/27/25 release (Dulcolax (bisacodyl)) polyethylene glycol 3350 17 17 g PO ONCE #238 grams 04/27/25 gram/dose oral powder Allergies Allergy/AdvReac Type Severity Reaction Status Date / Time Penicillins AdvReac Mild n/v Verified 04/29/25 10:23 seasonal Allergy Unknown Unknown Uncoded 04/29/25 10:23 paxlovid Allergy Skin Rash Uncoded 04/29/25 10:23 steroids AdvReac Intermediate depression Uncoded 04/29/25 10:23 General Stated Complaint: Chest Pain CAROLIN: 3 Course Vital Signs Vital signs: Vital Signs Temperature 36.7 C 04/29/25 10:17 Pulse 77 04/29/25 10:17 Respiratory Rate 18 04/29/25 10:17 Blood Pressure 122/72 04/29/25 10:17 Pulse Oximetry 97 04/29/25 10:17 Temperature 36.7 C 04/29/25 10:17 Temperature Source Oral 04/29/25 10:17 Pulse 77 04/29/25 10:17 Respiratory Rate 18 04/29/25 10:17 Blood Pressure 122/72 04/29/25 10:17 Pulse Oximetry 97 04/29/25 10:17 Oxygen Delivery Method Room Air 04/29/25 10:17 Oxygen Flow Rate 0 04/29/25 10:17 Pain Level 8 04/29/25 10:17 PFSH All Active Problems (Updated 04/29/25 @ 13:05 by Bruno Calvillo MD) Chest pain, unspecified (Acute) Lumbosacral radiculopathy at L4 (Acute) Numbness of toes (Acute) left great toe - neuropathy vs L4 radiculopathy? Periodic heart flutter (Acute) Sense of a change in rhythm, as if paused ( Lower back pain (Acute) central lumbar pain @ L4, L5 region Personal history of nicotine dependence (Acute) quit 2017 Myalgia (Acute) Irritability (Acute) frustrated Weight gain finding (Acute) Worrisome, despite dec calorie intake, affecting ADL (dyspnea+) COPD (chronic obstructive pulmonary disease) (Chronic) Asthma/COPD per NeuroEndo note (10/2018), Tx w/ non-steroid inhaler due to poor tolerance of steroids and Hx adrenal insufficiency attributed to inhaled steroid use. ik, 07/14/22 Asthma (Chronic) intermittent, mild Pulmonary nodule (Acute) 2nd Repeat CT recommended in 3mo (@04/2022). 10/03/21: RUL, cluster (round/elongated) .. 3mo Re-check done 12/31/21 showing slight decrease in size, with new pleural based nodule RML 8/6mm. Hypothyroid (Chronic) Dx 4 yrs ago (~ 2016) ... Hump behind the shoulders (Acute) Kyphosis? Diabetes? ((Diabetes may be a prime reason for buffalo hump obesity. Osteoporosis may also be cited as a cause of buffalo hump on back of neck, which is known as Kyphoscoliosis. It leads to the weakening and thinning of the bones. This leads to an abnormal shape of the neck.)) ((Too much cortisol can cause some of the hallmark signs of [place] syndrome ? a fatty hump between your shoulders, a rounded face, and pink or purple stretch hassan on your skin. [place] syndrome can also result in high blood pressure, bone loss and, on occasion, type 2 diabetes.)) Dense breasts (Acute) Per sensation, weight, swelling Hx, and mammogram. ((note: not dense per mammogram, rad Dx)) Skin rash (Acute) Subacute; @ Breasts, with little improvement post derm top Rx. Stopped smoking with greater than 30 pack year history (Chronic) Quit 07/26/2015 .. Muscle weakness of lower extremity (Chronic) R < L .. assoc w/ meningioma? and extended bed rest? Weight loss, intentional (Acute) Hx slow weight gain, 2' Endocrine issues (?) .. Recent weight loss. Benign meningioma of brain (Acute) 02/04/2018 Removed, [facility] Echeverria. Hx cognition and speech abn s/p surgery .. Vitamin deficiency (Acute) Low D per 03/2021 labs; Hx B Vit def? Medical History Abnormal cortisol level Resolved? since all steroid d/c? ik, 07/2022...Hx Cortisol issues per pt report .. [ ] Med Records Adrenal insufficiency steroid inhaler (stopped with improvement & managing copd w/ non-srd inhalers per chart [facility], incl neuroendo note 10/2018).ik, 07/2022 Anxiety and depression Cardiomyopathy Environmental allergies Exertional shortness of breath Family history of Hodgkin's lymphoma Maternal grandfa, with late Dx. History of benign meningioma of brain (~2017) s/p surgery, 2018, @ [facility], Dr. Echeverria History of cervical dysplasia Hx Crysurg; NEG PAPs since then .. Lymph node enlargement US shows it to be enlarged .. (left, inner to clavicle, corresponds to an 8 mm lymph node). Menopause ~ 48 yo Pain in right thigh Positive self-administered antigen test for COVID-19 positive home test 04/08/22, sx onset 04/07/22 Soft tissue mass 03/01/19 left forearm Vision changes Surgical History H/O craniotomy Social History Smoking/Tobacco Use Status: Former Tobacco Use Quit Date: 10/06/15 Tobacco: How many years used: 20 Smoking risk assessment performed?: Yes Alcohol Intake: never Drug use: Never Substance use type: does not use Adopted: No Caregiver/Support person: No Foster care: No Do you need help understanding health information?: Rarely Sexually active: Yes Do you think of yourself as: decline to provide Current gender identity: decline to answer Do you feel safe at home: Yes Do you feel safe in your relationship?: Yes POCUS Exam (ED) Limited Cardiac Exam DATE OF EXAM: 04/29/25 TIME OF EXAM: 13:04 PROVIDER THAT PERFORMED THE STUDY: Bruno Calvillo IS THIS A REPEAT EXAM DURING THIS ENCOUNTER: no REASON FOR EXAM: Chest pain VISUALIZED STRUCTURES: Four Chambers, Left ventricle and LVOT VIEW OBTAINED: Apical 4-Chamber, Parasternal long-axis and Subxiphoid PERTINENT FINDINGS/IMPRESSION: No pericardial effusion and No RV dilation DIFFERENTIAL DIAGNOSES: Aortic outflow track less than 4 cm, moderate squeeze, RV less than LV, no significant pericardial effusion. Exam complete
[2025-04-29 10:56] LABS: Abs Immature Grans 0.03 10^3/uL (0.0-0.06); HCT 43.5 % (36.0-46.0); HGB 14.5 g/dL (11.2-15.7); Immature Grans % 0.4 %; MCH 30.7 pg (27.0-33.0); MCHC 33.3 % (32.0-36.0); MCV 92 fL (80-95); MPV 10.2 fL (8.0-11.0); Platelet Count 247 10^3/uL (130-400); RBC 4.73 10^6/uL (3.93-5.22); RDW 12.5 % (11.7-14.6); RDW-SD 42.5 fL; WBC 6.73 10^3/uL (4.4-10.8)
[2025-04-29 11:15] LABS: ALT 33 U/L (14-59); AST 28 U/L (15-37); Albumin 3.8 g/dL (3.4-5.0); Alkaline Phosphatase 108 U/L (46-116); Anion Gap 9.0 mmol/L (3-11); BUN 11 mg/dL (7-18); Bilirubin, Total 0.4 mg/dL (0.2-1.0); CO2 25.0 mmol/L (21.0-32.0); Calcium 9.1 mg/dL (8.5-10.1); Chloride 105 mmol/L (98-107); Estimated GFR 62.91 (mL/min/1.73m2); Glucose 91 mg/dL (74-106); Lipase 39 U/L (<78); Potassium 4.1 mmol/L (3.5-5.1); Sodium 139 mmol/L (136-145); Total Protein 7.2 g/dL (6.4-8.2); Troponin I 5 ng/L (<or=51)
[2025-04-29 11:27] LABS: Lab Add On Test DONE
[2025-04-29 11:52] LABS: D-Dimer 438 ng/mlFEU (<500)
[2025-04-29 12:29] LABS: Acetaminophen < 2 ug/mL (10-30); Troponin I 6 ng/L (<or=51)
[2025-04-29] MEDS: Mylanta Suspension 30 ML CUP PO (13:51)
[2025-04-29] MEDS: Famotidine 20 MG TAB 40 MG PO (13:52)
== END 2025-04-29 13:58 | disposition home or self-care (01) ==
PROVIDERS: Emergency Provider Emergency Medicine; PCP Family Medicine
DX: R07.9 Chest pain, unspecified (principal); R29.6 Repeated falls; Z87.09 Personal history of other diseases of the respiratory system
CPT/HCPCS: 99284 ×2; 36415; 80053; 83690; 93005; 93308; 71046; 80329; 84484; 85025; 85379; 93010